=== PATIENT | female | born 1960 | race Two or more races ===

== ENCOUNTER 2023-08-19 08:42 | Outpatient (OUT) | payer OTHER, SELFPAY ==
--- NOTE | 2023-08-19 08:46 | MM_ITS ---
Patient: KRYSTAL SCHULTE Exam Date: 08/19/2023 : 1960 Gender:F Ordering : DR Efren Nix . Admission #: [id number] Family : Order #: [id number] CLICK HERE TO VIEW EXAM RADIOLOGY REPORT PROCEDURE: MM TOMOSYNTHESIS SCREENING BI COMPARISON: MG MAMM SCREEN 3D BREEZY CAD, 08/11/2022. MG MAMM SCREEN BREEZY W CAD, 12/10/2020. INDICATIONS: Screening Calculator Name NCI Breast Cancer Risk Assessment Tool 5 Year Breast Cancer Risk 1.20% Lifetime Breast Cancer Risk 5.60% Personal Breast Cancer No Personal Ovarian Cancer No Treatments None Family Cancers None LOCATION: [facility] BREAST COMPOSITION: Scattered areas fibroglandular density. FINDINGS: DIAGNOSTIC CATEGORY 2--BENIGN FINDING: Scattered benign-appearing calcifications are present. Scattered benign-appearing lymph nodes are present. RIGHT BREAST: No significant suspicious finding. LEFT BREAST: No significant suspicious finding. RECOMMENDATIONS: ROUTINE MAMMOGRAM AND CLINICAL EVALUATION IN 12 MONTHS. PLEASE NOTE: A NORMAL MAMMOGRAM DOES NOT EXCLUDE THE POSSIBILITY OF BREAST CANCER. A CLINICALLY SUSPICIOUS PALPABLE LUMP SHOULD BE BIOPSIED. Dictated by: Emile Gerardo MD on 08/20/2023 at 12:53 Approved by: Emile Gerardo MD on 08/20/2023 at 12:55
== END 2023-08-19 08:43 | disposition home or self-care (01) ==
LOC: MAMMO 08:43
PROVIDERS: PCP Family Medicine; Visit Provider Family Medicine
DX: Z12.31 Encounter for screening mammogram for malignant neoplasm of breast (principal)
CPT/HCPCS: 77063; 77067

== ENCOUNTER 2023-08-19 09:13 | Outpatient (OUT) | payer OTHER, SELFPAY ==
[2023-08-19 09:32] LABS: Basophils Percent Auto 0.5 % (0.2-2.0); Eosinophils Absolute Auto 0.1 10^3/uL (0.0-0.7); Eosinophils Percent Auto 1.6 % (0.9-7.0); Immature Granulocytes Abs Auto 0.02 10^3/uL (0.00-0.03); Immature Granulocytes Pct Auto 0.4 % (0.0-0.5); Lymphocytes Absolute Auto 1.9 10^3/uL (1.2-3.8); Lymphocytes Percent Auto 33.7 % (20.5-60.0); Mean Corpuscular HGB Conc 32.4 g/dL (29.9-35.2); Mean Corpuscular Volume 89.4 fL (81.0-99.0); Mean Platelet Volume 11.1 fL (9.5-13.5); Monocytes Absolute Auto 0.3 10^3/uL (0.3-0.8); Monocytes Percent Auto 5.2 % (1.7-12.0); Neutrophils Absolute Auto 3.3 10^3/uL (1.4-6.5); Neutrophils Percent Auto 58.6 % (43.0-75.0); Platelet Count 182 10^3/uL (150-450); Red Blood Count 4.14 10^6/uL (4.20-5.40); Red Cell Distribution Width 13.7 % (11.0-15.0); White Blood Count 5.6 10^3/uL (4.0-11.0)
[2023-08-19 10:40] LABS: Alanine Aminotransferase 32 U/L (14-59); Albumin Globulin Ratio 0.9; Albumin Level 3.6 g/dL (3.4-5.0); Alkaline Phosphatase 88 U/L (46-116); Anion Gap 11.6; Aspartate Amino Transferase 23 U/L (15-37); BUN Creatinine Ratio 22.4; Bilirubin Direct 0.1 mg/dL (0.0-0.2); Bilirubin Total 0.3 mg/dL (0.2-1.0); Calcium 9.3 mg/dL (8.5-10.1); Carbon Dioxide 28.8 mmol/L (21.0-32.0); Chloride 103 mmol/L (98-107); Chol HDL Ratio 4.4; Cholesterol 253 mg/dL (<=200); Estimated GFR (African America >60 (>=60); Estimated GFR (Non-African Ame >60 (>=60); Globulin 4.2 g/dL; Glucose 129 mg/dL (74-106); HDL Cholesterol 57 mg/dL (40-60); Potassium 4.4 mmol/L (3.5-5.1); Sodium 139 mmol/L (136-145); Thyroid Stimulating Hormone 2.151 uIU/mL (0.358-3.740); Total Protein 7.8 g/dL (6.4-8.2); Triglycerides 99 mg/dL (<=150); VLDL CHOLESTEROL 19.8 mg/dL
[2023-08-19 10:41] LABS: Estimated Average Glucose 157 mg/dL; Glycohemoglobin A1C 7.1 % (4.5-6.2)
== END 2023-08-19 09:14 | disposition home or self-care (01) ==
LOC: LAB 09:13
PROVIDERS: PCP Family Medicine; Visit Provider Family Medicine
DX: Z00.00 Encounter for general adult medical examination without abnormal findings (principal); Z12.31 Encounter for screening mammogram for malignant neoplasm of breast; E55.9 Vitamin D deficiency, unspecified
CPT/HCPCS: 36415; 77063; 77067; 80048; 80061; 80076; 82306; 83036; 84443; 85025

== ENCOUNTER 2023-11-24 09:02 | Outpatient (OUT) | payer OTHER, SELFPAY ==
[2023-11-24 09:25] LABS: Microalbumin Urine Random 1.5 mg/dL (<=30.0)
== END 2023-11-24 09:03 | disposition home or self-care (01) ==
LOC: LAB 09:03
PROVIDERS: PCP Family Medicine; Visit Provider Family Medicine
DX: E11.65 Type 2 diabetes mellitus with hyperglycemia (principal)
CPT/HCPCS: 82043

== ENCOUNTER 2024-07-19 08:37 | Outpatient (OUT) | payer OTHER, SELFPAY ==
[2024-07-19 08:57] LABS: Basophils Percent Auto 0.5 % (0.2-2.0); Eosinophils Absolute Auto 0.1 10^3/uL (0.0-0.7); Eosinophils Percent Auto 1.4 % (0.9-7.0); Hematocrit 38.4 % (36.0-48.0); Hemoglobin 12.2 g/dL (12.0-16.0); Immature Granulocytes Abs Auto 0.03 10^3/uL (0.00-0.03); Immature Granulocytes Pct Auto 0.5 % (0.0-0.5); Lymphocytes Absolute Auto 1.9 10^3/uL (1.2-3.8); Lymphocytes Percent Auto 29.8 % (20.5-60.0); Mean Corpuscular HGB Conc 31.8 g/dL (29.9-35.2); Mean Corpuscular Hemoglobin 28.4 pg (26.7-34.0); Mean Corpuscular Volume 89.3 fL (81.0-99.0); Mean Platelet Volume 11.4 fL (9.5-13.5); Monocytes Absolute Auto 0.3 10^3/uL (0.3-0.8); Monocytes Percent Auto 4.8 % (1.7-12.0); Neutrophils Absolute Auto 4.1 10^3/uL (1.4-6.5); Platelet Count 189 10^3/uL (150-450); Red Cell Distribution Width 13.8 % (11.0-15.0); White Blood Count 6.5 10^3/uL (4.0-11.0)
[2024-07-19 10:53] LABS: Alanine Aminotransferase 34 U/L (14-59); Albumin Globulin Ratio 0.9; Albumin Level 3.6 g/dL (3.4-5.0); Alkaline Phosphatase 94 U/L (46-116); Anion Gap 11.3; Aspartate Amino Transferase 19 U/L (15-37); BUN Creatinine Ratio 26.3; Bilirubin Direct 0.1 mg/dL (0.0-0.2); Bilirubin Total 0.3 mg/dL (0.2-1.0); Carbon Dioxide 27.8 mmol/L (21.0-32.0); Chloride 101 mmol/L (98-107); Chol HDL Ratio 4.6; Cholesterol 265 mg/dL (<=200); Estimated GFR (African America >60 (>=60); Estimated GFR (Non-African Ame >60 (>=60); Globulin 4.2 g/dL; Glucose 149 mg/dL (74-106); HDL Cholesterol 58 mg/dL (40-60); Potassium 4.1 mmol/L (3.5-5.1); Sodium 136 mmol/L (136-145); Thyroid Stimulating Hormone 2.794 uIU/mL (0.358-3.740); Total Protein 7.8 g/dL (6.4-8.2); Triglycerides 108 mg/dL (<=150); VLDL CHOLESTEROL 21.6 mg/dL
[2024-07-19 11:48] LABS: Estimated Average Glucose 163 mg/dL; Glycohemoglobin A1C 7.3 % (4.5-6.2)
== END 2024-07-19 08:38 | disposition home or self-care (01) ==
LOC: LAB 08:38
PROVIDERS: PCP Family Medicine; Visit Provider Family Medicine
DX: Z79.899 Other long term (current) drug therapy (principal); E11.65 Type 2 diabetes mellitus with hyperglycemia; E55.9 Vitamin D deficiency, unspecified; I10 Essential (primary) hypertension; E78.5 Hyperlipidemia, unspecified; E66.01 Morbid (severe) obesity due to excess calories
CPT/HCPCS: 36415; 80048; 80061; 80076; 82306; 83036; 84443; 85025

== ENCOUNTER 2024-10-27 08:50 | Outpatient (OUT) | payer OTHER, SELFPAY ==
--- NOTE | 2024-10-27 | MM_ITS ---
Patient Name: KRYSTAL SCHULTE MR#: [id number] : 1960 Exam Date: 10/27/2024 Ordering Doctor: DR Efren Nix . RADIOLOGY REPORT PROCEDURE: MM TOMOSYNTHESIS SCREENING BI COMPARISON: MM TOMOSYNTHESIS SCREENING BI, 08/19/2023. INDICATIONS: SCREENING Calculator Name NCI Breast Cancer Risk Assessment Tool 5 Year Breast Cancer Risk 1.30% Lifetime Breast Cancer Risk 5.50% Personal Breast Cancer No Personal Ovarian Cancer No Treatments None Family Cancers None LOCATION: [facility] BREAST COMPOSITION: There are scattered areas of fibroglandular density. FINDINGS: DIAGNOSTIC CATEGORY 2--BENIGN FINDING. NO CHANGE FROM COMPARISON. Scattered benign-appearing calcifications are present. Scattered benign-appearing lymph nodes are present. RIGHT BREAST: No significant suspicious finding. LEFT BREAST: No significant suspicious finding. RECOMMENDATIONS: ROUTINE MAMMOGRAM AND CLINICAL EVALUATION IN 12 MONTHS. PLEASE NOTE: A NORMAL MAMMOGRAM DOES NOT EXCLUDE THE POSSIBILITY OF BREAST CANCER. A CLINICALLY SUSPICIOUS PALPABLE LUMP SHOULD BE BIOPSIED. Dictated by: Emile Gerardo MD on 10/27/2024 at 10:09 Approved by: Emile Gerardo MD on 10/27/2024 at 10:15
--- OUTSIDE RECORDS SUMMARY | 2024-10-27 08:54 | XMS_ITS | CCD ---
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 Name Role Phone CHELSIE, DR EFREN Mccall Admitting Unavailable NADERER, DR EFREN Mccall Attending Unavailable NADERER, DR EFREN Mccall Primary Care Unavailable NADERER, DR EFREN Mccall Consulting Unavailable NADERER, DR EFREN Mccall Admitting Unavailable NADERER, DR EFREN Mccall Attending Unavailable NADERER, DR EFREN Mccall Primary Care Unavailable NUREMBERG, DR HARVEY Medrano Consulting Unavailable NADERER, DR EFREN Mccall Consulting Unavailable NADERER, DR EFREN Mccall Admitting Unavailable NADERER, DR EFREN Mccall Attending Unavailable NADERER, DR EFREN Mccall Primary Care Unavailable NADERER, DR EFREN Mccall Consulting Unavailable Efren Holguin MD Primary Care Provider CARL MURPHY Admitting Unavailable JEFFREYCARL DUNHAM Attending Unavailable NADERER, EFREN Primary Care Unavailable SHERI RIVERA Attending Unavailable NADERER, EFREN Primary Care Unavailable JEFFREYCARL DUNHAM Attending Unavailable NADEREREFREN Referring Unavailable NADERER, EFREN Primary Care Unavailable CARL MURPHY Attending Unavailable NADERER, EFREN Referring Unavailable NADERER, EFREN Primary Care Unavailable CARL MURPHY Attending Unavailable NADERER, EFREN Referring Unavailable NADERER, EFREN Primary Care Unavailable JEFFREYCARL DUNHAM Attending Unavailable NADERER, EFREN Referring Unavailable NADERER, EFREN Primary Care Unavailable JEFFREYCARL DUNHAM Attending Unavailable NADERER, EFREN Referring Unavailable NADERER, EFREN Primary Care Unavailable CARL MURPHY Attending Unavailable NADERER, EFREN Referring Unavailable NADERER, EFREN Primary Care Unavailable Efren Holguin MD Primary Care Provider EFREN HOLGUIN Attending Unavailable NADERER, EFREN Attending Unavailable NADERER, EFREN Attending Unavailable Medications Current Medications Medication Drug Class(es) Dates Sig (Normalized) Sig (Original) atorvastatin 40 mg oral tablet (3 sources) HMG-CoA Reductase Inhibitor Start: 07-19-2024 take 1 tablet by mouth once daily atorvastatin (Lipitor) 40 MG tablet Indications: Dyslipidemia (CMS/HCC) Take 1 tablet (40 mg) by mouth Daily 30 tablet 5 07/19/2024 Active bimatoprost 0.1 mg/ml ophthalmic solution (2 sources) Prostaglandin Analog Start: 07-02-2023 take 1 drop(s) into the eye(s) once daily LUMIGAN 0.01 % ophthalmic drops Administer 1 drop to both eyes nightly. 0 07/02/2023 Active brimonidine tartrate 2 mg/ml ophthalmic solution (5 sources) alpha-Adrenergic Agonist Start: 02-20-2024 End: 10-18-2024 take 1 drop(s) into the eye(s) every twelve hours brimonidine (AlphaGAN P) 0.2 % ophthalmic solution INSTILL 1 DROP INTO RIGHT EYE EVERY 12 HOURS 02/20/2024 10/18/2024 Discontinued Start: 11-18-2023 take 1 drop(s) into the eye(s) every twelve hours brimonidine (ALPHAGAN) 0.2 % ophthalmic solution Administer 1 drop to the right eye every 12 (twelve) hours. 5 mL 11 11/18/2023 Active cholecalciferol 0.025 mg oral capsule (2 sources) Vitamin D take 1 capsule by mouth once daily cholecalciferol (Vitamin D-3) 25 MCG (1000 UT) capsule Take 1,000 Units by mouth Daily Active difluprednate 0.5 mg/ml ophthalmic suspension (3 sources) Start: 03-02-20 End: 10-18-20 24 difluprednate (Durezol) 0.05 % ophthalmic solution Administer 1 drop into affected eye(s) in the morning and 1 drop at noon and 1 drop in the evening and 1 drop before bedtime. 03/02/2024 10/18/2024 Discontinued dorzolamide 20 mg/ml / timolol 5 mg/ml ophthalmic solution (2 sources) Carbonic Anhydrase Inhibitor, beta-Adrenergic Emanuel Start: 06-20-20 take 1 drop(s) into the eye(s) twice daily dorzolamide-timoloL (COSOPT) 22.3-6.8 mg/mL ophthalmic solution INSTILL 1 DROP INTO EACH EYE TWICE DAILY DIRECTED 0 06/20/2023 Active 24 hr metFORMIN hydrochloride 500 mg extended release oral tablet (5 sources) Biguanide Start: 05-09-20 End: 05-09-20 take 1 tablet by mouth once daily metFORMIN XR (Glucophage-XR) 500 MG 24 hr tablet Indications: Type 2 diabetes mellitus with hyperglycemia, without long-term current use of insulin (CMS/HCC) Take 1 tablet (500 mg) by mouth Daily 90 tablet 3 05/09/2024 05/09/2025 Active Start: 07-04-2023 metFORMIN XR ( GLUCOPHAGE XR) 500 mg 24 hr tablet olmesartan medoxomil 40 mg oral tablet (7 sources) Angiotensin 2 Receptor Emanuel Start: 08-28-2024 take 1 tablet by mouth once daily olmesartan (BENIcar) 40 MG tablet Indications: Essential hypertension, benign (CMS/HCC) Take 1 tablet by mouth once daily 90 tablet 08/28/2024 Active Start: 06-09-2023 olmesartan (BE NICAR) 40 mg tablet take 1 tablet by sherry th once daily olmesartan (BENICAR) 20 mg tablet Take 20 mg by mouth daily. 0 Active Problems Active Problems Problem Classification Problem Date Documented Da te Episodic/Chronic Cataract (2 sources) Bilateral senile combined form cataracts of eyes; Translations: [Combined forms of age-related cataract, bilateral] Onset: 02-16-2024 02-16-2024 Chronic Diabetes mellitus with complications (9 sources) Type 2 diabetes mellitus with hyperglycemia; Translations: [Hyperglycemia due to type 2 diabetes mellitus] Onset: 12-23-2022 Chronic Disorders of lipid metabolism (3 sources) Dyslipidemia; Translations: [Hyperlipidemia, unspecified] Onset: 10-27-2023 10-27-2023 Chronic Essential hypertension (5 sources) Benign essential hypertension; Translations: [Essential (primary) hypertension] Onset: 10-27-2023 10-27-2023 Chronic Glaucoma (6 sources) Primary open angle glaucoma; Translations: [Primary open-angle glaucoma, bilateral, moderate stage] Onset: 10-27-2023 02-16-2024 Chronic Nutritional deficiencies (4 sources) Vitamin D deficiency, unspecified; Translations: [Vitamin D deficiency] Onset: 04-22-2022 10-27-2023 Chronic Other nutritional; endocrine; and metabolic disorders (3 sources) Morbid obesity; Translations: [Morbid (severe) obesity due to excess calories] Onset: 10-27-2023 10-27-2023 Chronic Other screening for suspected conditions (not mental disorders or infectious disease) (6 sources) Encounter for screening mammogram for malignant neoplasm of breast; Translations: [Patient encounter status] Onset: 08-11-2022 Episodic Unclassified (1 source) Post-op Follow-up Onset: 04-13-2024 Past or Other Problems Problem Classification Problem Date Documented Da te Episodic/Chronic Other aftercare (3 sources) Long-term current use of drug therapy; Translations: [Other alf (current) drug therapy] Onset: 04-20-2024 04-20-2024 Episodic Other connective tissue disease (3 sources) Plantar fasciitis; Translations: [Plantar fascial fibromatosis] Onset: 10-27-2023 10-27-2023 Episodic Results Test Name Value Interpretation Reference Range Facility Glucose Glucometer (BldC) [M ass/Vol]on 04-12-2024 Glucose [Mass/Vol] 153 mg/dL High 65-99 [facility] GLYCOHEMOGLOBIN A1Con 2022 ADA RECOMMENDATION SEE BELOW Normal [facility] Comment on above: Result Comment: ADA RECOMMENDED LIMIT 4.0 - 6.0 ADA THERAPEUTIC TARGET < 7.0 ACTION SUGGESTED > 7.0 Performed By: #### A 1C #### [facility] [address] [address] [address] Millie Cai Glucose [Mass/Vol] 169 mg/dL Normal [facility] Comment on above: Performed By: #### A 1C #### [facility] [address] [address] [address] Millie Cai HbA1c (Bld) [Mass fraction] 7.5 % Critically high 4.5-6.2 [facility] Comment on above: Performed By: #### A 1C #### [facility] [address] [address] [address] Millie Cai MG MAMM SCREEN 3D BREEZY CADon 08-11-2022 MG MAMM SCREEN 3D BREEZY CAD Patient: GENI SCHULTE Exam Date: 08/11/2022 : 1960 Gender:F Ordering : DR EFREN HOLGUIN . Admission #: [id number] Family : Order #: [id number] CLICK HERE TO VIEW EXAM RADIOLOGY REPORT PROCEDURE: MAMMOGRAM SCREENING 3D BILATERAL CAD COMPARISON: MG MAMM SCREEN BREEZY W CAD, 12/10/2020. MG MAMM SCREEN BREEZY W CAD, 10/31/2019. INDICATIONS: Screening mammography Calculator Name NCI Breast Cancer Risk Assessment Tool 5 Year Breast Cancer Risk 1.20% Lifetime Breast Cancer Risk 6.00% Personal Breast Cancer No Personal Ovarian Cancer No Treatments None Family Cancers None LOCATION: [facility] BREAST COMPOSITION: Scattered areas fibroglandular density. FINDINGS: DIAGNOSTIC CATEGORY 2--BENIGN FINDING. NO CHANGE FROM COMPARISON. Scattered benign-appearing nodules are present. Scattered benign-appearing calcifications are present. Scattered benign-appearing lymph nodes are present. RIGHT BREAST: No significant suspicious finding. LEFT BREAST: No significant suspicious finding. RECOMMENDATIONS: ROUTINE MAMMOGRAM AND CLINICAL EVALUATION IN 12 MONTHS. PLEASE NOTE: A NORMAL MAMMOGRAM DOES NOT EXCLUDE THE POSSIBILITY OF BREAST CANCER. A CLINICALLY SUSPICIOUS PALPABLE LUMP SHOULD BE BIOPSIED. Dictated by: Harvey Gerardo MD on 08/11/2022 at 10:55 Approved by: Harvey Gerardo MD on 08/11/2022 at 10:58 Normal [facility] CBC AUTO DIFFon 04-15-2022 BASO # 0.0 103/ul Normal 0.0-0.1 [facility] Comment on above: Performed By: #### C BC #### [facility] [address] [place] [address] Dr. Millie Cai Basophils/100 WBC (Bld) 0.3 % Normal 0.2-2.0 [facility] Comment on above: Performed By: #### C BC #### [facility] [address] [address] [address] Millie Cai EO # 0.1 103/ul Normal 0.0-0.7 [facility] Comment on above: Performed By: #### C BC #### [facility] [address] [place] [address] Dr. Millie Cai Eosinophils/100 WBC (Bld) 1.4 % Normal 0.9-7.0 [facility] Comment on above: Performed By: #### C BC #### [facility] [address] [place] [address] Dr. Millie Cai Erythrocyte distribution width (RBC) [Ratio] 14.2 % Normal 11.0-15.0 [facility] Comment on above: Performed By: #### C BC #### [facility] [address] [place] [address] Dr. Millie Cai Hematocrit (Bld) [Volume fraction] 37.7 % Normal 36.0-48.0 [facility] Comment on above: Performed By: #### C BC #### [facility] [address] [place] [address] Dr. Millie Cai Hemoglobin (Bld) [Mass/Vol] 11.8 g/dL Critically low 12.0-16.0 [facility] Comment on above: Performed By: #### C BC #### [facility] [address] [place] [address] Dr. Millie Cai IG # 0.03 10e3/ul Normal 0.00-0.03 [facility] Comment on above: Performed By: #### C BC #### [facility] [address] [place] [address] Dr. Millie Cai IG % 0.5 % Normal 0.0-0.5 [facility] Comment on above: Performed By: #### C BC #### [facility] [address] [place] [address] Dr. Millie Cai LYMPH # 2.2 103/ul Normal 1.2-3.8 [facility] Comment on above: Performed By: #### C BC #### [facility] [address] [place] [address] Dr. Millie Cai Lymphocytes/100 WBC (Bld) 35.2 % Normal 20.5-60.0 [facility] Comment on above: Performed By: #### C BC #### [facility] [address] [place] [address] Dr. Millie Cai MANUAL DIFF REQ NO Normal [facility] Comment on above: Performed By: #### C BC #### [facility] [address] [address] [address] Millie Cai MCH (RBC) [Entitic mass] 28.2 pg Normal 26.7-34.0 [facility] Comment on above: Performed By: #### C BC #### [facility] [address] [place] [address] Dr. Millie Cai MCHC (RBC) [Mass/Vol] 31.3 g/dL Normal 29.9-35.2 [facility] Comment on above: Performed By: #### C BC #### [facility] [address] [place] [address] Dr. Millie Cai MCV (RBC) [Entitic vol] 90.2 fL Normal 81.0-99.0 [facility] Comment on above: Performed By: #### C BC #### [facility] [address] [place] [address] Dr. Millie Cai MONO # 0.3 103/ul Normal 0.3-0.8 [facility] Comment on above: Performed By: #### C BC #### [facility] [address] [place] [address] Dr. Millie Cai Monocytes/100 WBC (Bld) 5.5 % Normal 1.7-12.0 [facility] Comment on above: Performed By: #### C BC #### [facility] [address] [place] [address] Dr. Millie Cai NEUT # 3.6 103/ul Normal 1.4-6.5 [facility] Comment on above: Performed By: #### C BC #### [facility] [address] [place] [address] Dr. Millie Cai Neutrophils/100 WBC (Bld) 57.1 % Normal 43.0-75.0 [facility] Comment on above: Performed By: #### C BC #### [facility] [address] [place] [address] Dr. Millie Cai Platelet mean volume (Bld) [Entitic vol] 11.4 fL Normal 9.5-13.5 [facility] Comment on above: Performed By: #### C BC #### [facility] [address] [address] [address] Millie Cai PLT 194 103/ul Normal 150-450 [facility] Comment on above: Performed By: #### C BC #### [facility] [address] [address] [address] Millie Cai RBC 4.18 106/ul Critically low 4.20-5.40 [facility] Comment on above: Performed By: #### C BC #### [facility] [address] [address] [address] Millie Cai WBC 6.2 103/ul Normal 4.0-11.0 [facility] Comment on above: Performed By: #### C BC #### [facility] [address] [place] [address] Dr. Millie Cai GLYCOHEMOGLOBIN A1Con 2021 ADA RECOMMENDATION SEE BELOW Normal [facility] Comment on above: Result Comment: ADA RECOMMENDED LIMIT 4.0 - 6.0 ADA THERAPEUTIC TARGET < 7.0 ACTION SUGGESTED > 7.0 Performed By: #### A 1C #### [facility] [address] [place] [address] Dr. Millie Cai Glucose [Mass/Vol] 146 mg/dL Normal [facility] Comment on above: Performed By: #### A 1C #### [facility] [address] [place] [address] Dr. Millie Cai HbA1c (Bld) [Mass fraction] 6.7 % Critically high 4.5-6.2 [facility] Comment on above: Performed By: #### A 1C #### [facility] [address] [place] [address] Dr. Millie Cai LIPID PROFILEon 04-15-2022 CHOL-HDL RATIO NORM SEE BELOW Normal [facility] Comment on above: Result Comment: 3.3 - 4.4 LOW RISK 4.4 - 7.1 AVERAGE RISK 7.1 - 11.0 MODERATE RISK >11.0 HIGH RISK Performed By: #### B MP, LIVER, LIPID, TSH #### [facility] [address] [place] [address] Dr. Millie Cai Cholesterol [Mass/Vol] 235 mg/dL Critically high <=200 [facility] Comment on above: Performed By: #### B MP, LIVER, LIPID, TSH #### [facility] [address] [address] [address] Millie Cai Cholesterol in HDL [Mass/Vol] 50 mg/dL Normal 40-60 [facility] Comment on above: Performed By: #### B MP, LIVER, LIPID, TSH #### [facility] [address] [address] [address] Millie Cai Cholesterol in LDL [Mass/Vol] 161.2 mg/dL Normal [facility] Comment on above: Performed By: #### B MP, LIVER, LIPID, TSH #### [facility] [address] [address] [address] Millie Cai Cholesterol.total/Cho lesterol in HDL [Mass ratio] 4.7 {ratio} Normal [facility] Comment on above: Performed By: #### B MP, LIVER, LIPID, TSH #### [facility] [address] [address] [address] Millie Cai HDL NORMAL > or = 60 mg/dl - LOW CARDIOVASCULAR RISK <40 mg/dl - HIGH CARDIOVASCULAR RISK Normal [facility] Comment on above: Performed By: #### B MP, LIVER, LIPID, TSH #### [facility] [address] [address] [address] Millie Cai LDL CALC NORMAL SEE BELOW Normal [facility] Comment on above: Result Comment: <100 mg/dl OPTIMAL 100 - 129 mg/dl NEAR OR ABOVE OPTIMAL 130 - 159 mg/dl BORDERLINE HIGH 160 - 189 mg/dl HIGH >190 mg/dl VERY HIGH Performed By: #### B MP, LIVER, LIPID, TSH #### [facility] [address] [address] [address] Millie Cai Triglyceride [Mass/Vol] 119 mg/dL Normal <=150 [facility] Comment on above: Performed By: #### B MP, LIVER, LIPID, TSH #### [facility] [address] [address] [address] Millie Cai VLDL CALC 23.8 mg/dL Normal [facility] Comment on above: Performed By: #### B MP, LIVER, LIPID, TSH #### [facility] [address] [address] [address] Millie Cai LIVER PROFILEon 04-15-2022 Albumin [Mass/Vol] 3.6 g/dL Normal 3.4-5.0 [facility] Comment on above: Performed By: #### B MP, LIVER, LIPID, TSH #### [facility] [address] [address] [address] Millie Cai Albumin/Globulin [Mass ratio] 0.9 {ratio} Normal [facility] Comment on above: Performed By: #### B MP, LIVER, LIPID, TSH #### [facility] [address] [place] [address] Dr. Millie Cai ALP [Catalytic activity/Vol] 92 U/L Normal 46-116 [facility] Comment on above: Performed By: #### B MP, LIVER, LIPID, TSH #### [facility] [address] [place] [address] Dr. Millie Cai ALT [Catalytic activity/Vol] 20 U/L Normal 14-59 [facility] Comment on above: Performed By: #### B MP, LIVER, LIPID, TSH #### [facility] [address] [place] [address] Dr. Millie Cai AST [Catalytic activity/Vol] 16 U/L Normal 15-37 [facility] Comment on above: Performed By: #### B MP, LIVER, LIPID, TSH #### [facility] [address] [place] [address] Dr. Millie Cai BILI, CONJUGATED 0.1 mg/dL Normal 0.0-0.2 [facility] Comment on above: Performed By: #### B MP, LIVER, LIPID, TSH #### [facility] [address] [place] [address] Dr. Millie Cai Bilirubin [Mass/Vol] 0.4 mg/dL Normal 0.2-1.0 [facility] Comment on above: Performed By: #### B MP, LIVER, LIPID, TSH #### [facility] [address] [place] [address] Dr. Millie Cai Globulin (S) [Mass/Vol] 3.9 g/dL Normal [facility] Comment on above: Performed By: #### B MP, LIVER, LIPID, TSH #### [facility] [address] [place] [address] Dr. Millie Cai Protein [Mass/Vol] 7.5 g/dL Normal 6.4-8.2 [facility] Comment on above: Performed By: #### B MP, LIVER, LIPID, TSH #### [facility] [address] [place] [address] Dr. Millie Cai PROF CHEM 8 (BAS METB)on Anion gap [Moles/Vol] 11.6 mmol/L Normal [facility] Comment on above: Performed By: #### B MP, LIVER, LIPID, TSH #### [facility] [address] [place] [address] Dr. Millie Cai Calcium [Mass/Vol] 8.7 mg/dL Normal 8.5-10.1 [facility] Comment on above: Performed By: #### B MP, LIVER, LIPID, TSH #### [facility] [address] [place] [address] Dr. Millie Cai Chloride [Moles/Vol] 105 mmol/L Normal 98-107 [facility] Comment on above: Performed By: #### B MP, LIVER, LIPID, TSH #### [facility] [address] [place] [address] Dr. Millie Cai CO2 [Moles/Vol] 27.6 mmol/L Normal 21.0-32.0 [facility] Comment on above: Performed By: #### B MP, LIVER, LIPID, TSH #### [facility] [address] [place] [address] Dr. Millie Cai Creatinine [Mass/Vol] 0.62 mg/dL Normal 0.55-1.02 [facility] Comment on above: Performed By: #### B MP, LIVER, LIPID, TSH #### [facility] [address] [place] [address] Dr. Millie Cai EGFR-AF SURINAMESE >60 Normal >=60 [facility] Comment on above: Performed By: #### B MP, LIVER, LIPID, TSH #### [facility] [address] [address] [address] Millie Cai EGFR-NON AF SURINAMESE >60 Normal >=60 [facility] Comment on above: Performed By: #### B MP, LIVER, LIPID, TSH #### [facility] [address] [address] [address] Millie Cai Glucose [Mass/Vol] 122 mg/dL Critically high 74-106 T [facility] Comment on above: Performed By: #### B MP, LIVER, LIPID, TSH #### [facility] [address] [address] [address] Millie Cai Potassium [Moles/Vol] 4.2 mmol/L Normal 3.5-5.1 [facility] Comment on above: Performed By: #### B MP, LIVER, LIPID, TSH #### [facility] [address] [address] [address] Millie Cai Sodium [Moles/Vol] 140 mmol/L Normal 136-145 [facility] Comment on above: Performed By: #### B MP, LIVER, LIPID, TSH #### [facility] [address] [address] [address] Millie Cai Urea nitrogen [Mass/Vol] 17.0 mg/dL Normal 7.0-18.0 [facility] Comment on above: Performed By: #### B MP, LIVER, LIPID, TSH #### [facility] [address] [address] [address] Millie Cai Urea nitrogen/Creatinine [Mass ratio] 27.4 mg/mg Normal [facility] Comment on above: Performed By: #### B MP, LIVER, LIPID, TSH #### [facility] [address] [address] [address] Millie Cai TSHon 04-15-2022 TSH 1.589 uIU/mL Normal 0.358-3.740 [facility] Comment on above: Performed By: #### B MP, LIVER, LIPID, TSH #### [facility] [address] [place] [address] Dr. Millie Cai TSH RANGE SEE BELOW Normal [facility] Comment on above: Result Comment: <0.3 4 UIU/ml HYPERTHYROID 0.34-5.60 UIU/ml EUTHYROID >5.60 UIU/ml HYPOTHYROID Performed By: #### B MP, LIVER, LIPID, TSH #### [facility] [address] [address] [address] Millie Cai VITAMIN D 25 OHon 04-15-2022 VIT D 25-OH 27.2 ng/mL Normal [facility] Comment on above: Performed By: #### V ITAD #### [facility] [address] [place] [address] Dr. Millie Cai VIT D RANGES SEE BELOW Normal [facility] Comment on above: Result Comment: <20 ng/mL Vit D deficient 20 - <30 ng/mL Vit D insufficient 30 - 100 ng/mL Vit D sufficient >100 ng/mL Potential Toxicity Performed By: #### V ITAD #### [facility] [address] [place] [address] Dr. Millie Cai Vital Signs Date Time Vital Sign Value Performing Clinician Beata suarez 10-18-2024 09:31-0500 Body height 165.1 cm Efren Holguin MD Work Phone: [facility] 10-18-2024 09:31-0500 Body mass index (BMI) [Ratio] 39.11 kg/m2 Efren Holguin MD Work Phone: [facility] 10-18-2024 09:31-0500 Body temperature 97.11 [degF] Efren Holguin MD Work Phone: [facility] 10-18-2024 09:31-0500 Body weight 106.59 kg Efren Holguin MD Work Phone: [facility] 10-18-2024 09:31-0500 Diastolic blood pressure 74 mm[Hg] Efren Holguin MD Work Phone: [facility] 10-18-2024 09:31-0500 Heart rate 61 /min Efren Holguin MD Work Phone: [facility] 10-18-2024 09:31-0500 Respiratory rate 22 /min Efren Holguin MD Work Phone: [facility] 10-18-2024 09:31-0500 SaO2% (BldA) [Mass fraction] 98 % Efren Holguin MD Work Phone: [facility] 10-18-2024 09:31-0500 Systolic blood pressure 140 mm[Hg] Efren Holguin MD Work Phone: [facility] Healthcare Encounters Encounter Date Encounter Type Care Provider Facility Start: 10-18-2024 End: 10-18-2024 Bamboo flowsheet Efren Holguin MD Work Phone: [facility] Start: 10-18-2024 End: 10-18-2024 BamOpen-Plugo Aqua Skin Scienceheet Efren Holguin MD Work Phone: [facility] Start: 10-18-2024 End: 10-18-2024 Patient encounter procedure Efren Holguin MD Work Phone: [facility] Healthcare Work Phone: Start: 10-18-2024 End: 10-18-2024 Periodic preventive med est patient 40-64yrs Efren Holguin MD Work Phone: [facility] Comment on above: Annual physical exam (Primary Dx); Breast cancer screening by mammogram; Type 2 diabetes mellitus with hyperglycemia, without long-term current use of insulin ([facility]/HCC); Essential hypertension, benign ([facility]/HCC) Start: 10-18-2024 End: 10-18-2024 ambulatory EFREN HOLGUIN Not Available Start: 06-20-2024 End: 06-20-2024 ambulatory [facility] Start: 05-09-2024 End: 05-09-2024 ambulatory [facility] Start: 04-25-2024 End: 04-25-2024 ambulatory [facility] Start: 04-20-2024 End: 04-20-2024 ambulatory EFREN HOLGUIN Not Available Start: 04-19-2024 End: 04-19-2024 ambulatory [facility] Start: 04-13-2024 End: 04-13-2024 ambulatory [facility] Start: 04-12-2024 End: 04-12-2024 Evaluation and management of inpatient SHERI Mccall NICOLE [facility] Start: 04-12-2024 End: 04-12-2024 Evaluation and management of inpatient [facility] Start: 02-16-2024 End: 02-16-2024 ambulatory [facility] Start: 02-16-2024 End: 02-16-2024 Office outpatient visit 25 minutes Carl Murphy MD Work Phone: [facility] Comment on above: Primary open angle g laucoma (POAG) of both eyes, moderate stage (Primary Dx); Combined form of age-related cataract, both eyes Start: 12-27-2023 Documentation procedure Carl Murphy MD Work Phone: [facility] Start: 10-27-2023 End: 10-27-2023 ambulatory EFREN OHLGUIN Not Available Start: 12-23-2022 End: 12-24-[address] EFREN HOLGUIN Facility:[facility] Start: 08-11-2022 End: 08-12-[address] EFREN HOLGUIN Facility:[facility] Start: 04-22-2022 Encounter for genera l adult medical examination without abnormal findings DR EFREN HOLGUIN [facility] Start: 04-15-2022 End: 04-16-[address] EFREN HOLGUNI Facility:[facility] Start: 04-15-2022 End: 04-16-2022 Encounter for general adult medical examination without abnormal findings DR EFREN HOLGUIN Facility:[facility] Procedures Date Procedure Procedure Detail Performing Clinician Start: 08-19-2023 Mammography Efren apple MD Work Phone: Start: 10-01-2018 Colonoscopy Carl dunham MD Work Phone: Plan of Treatment Date Care Activity Detail Author Start: 08-15-2028 Screening for malign ant neoplasm of colon [facility] Start: 04-25-2025 End: 04-25-2025 Patient encounter procedure 04/25/2025 9:30 AM EDT Office Visit [facility] [address] [place] [address] Efren Holguin MD [address] [place] [id number] [facility] Start: 02-15-2025 Tobacco Screening Tobacco Screening [facility] Start: 01-16-2025 Hemoglobin A1c measurement Diabetes: Hemoglobin A1C [facility] Start: 01-13-2025 Glaucoma screening Diabetes: R etinopathy Screening [facility] Start: 11-24-2024 Urine screening for protein Diabetes: Urine Protein Screening [facility] Start: 10-18-2024 End: 12-19-2025 MG Breast - bilateral Screening Bilateral screening mammogram Imaging Routine Breast cancer screening by mammogram Expected: 10/18/2024, Expires: 12/19/2025 [facility] Work Phone: Comment on above: Expected: 10/18/2024 , Expires: 12/19/2025 Start: 10-18-2024 End: 10-18-2024 Patient encounter procedure 10/18/2024 9:15 AM EST Office Visit [facility] [address] [place] [phone] Efren Holguin MD [address] [place] [address] Arrived [facility] Comment on above: Arrived Start: 09-10-2024 Tobacco Screening Tobacco Screening [facility] Start: 08-19-2024 Screening for malign ant neoplasm of breast Mammogram [facility] Start: 07-16-2024 Influenza vaccination [facility] Start: 02-16-2024 End: 02-16-2024 Patient encounter procedure 02/16/2024 1:20 PM EDT Office Visit [facility] [address] [place] [address] Carl Murphy MD [address] [place] [address] [facility] Start: 11-19-2023 Hemoglobin A1c measurement Diabetes: Hemoglobin A1C [facility] Start: 07-16-2023 COVID-19 Vaccine ( season) COVID-19 Vaccine () [facility] Start: 08-15-2019 Screening for malign ant neoplasm of colon Colonoscopy [facility] Start: 2010 Administration of varicella zoster vaccine Zoster (Shingles) Vaccine (1 of 2) [facility] Start: 1990 Screening for malign ant neoplasm of cervix [facility] Start: 1981 Screening for malign ant neoplasm of cervix Pap Smear [facility] Start: 1979 DTaP,Tdap and Td Vac cines (1 - Tdap) DTaP,Tdap and Td Vaccines ( - Tdap) [facility] Start: 1978 Adult BMI Screening Adult BMI Screen ing [facility] Start: 1972 Depression Screening Depression Scre ening [facility] Start: 1960 Screening for malign ant neoplasm of colon [facility] Immunizations Immunization Date Immunization Notes Care Provider Fa cility 09-15-2024 influenza virus vaccine, unspecified formulation Efren Holguin MD Work Phone: [facility] 07-30-2023 influenza virus vaccine, unspecified formulation Carl Murphy MD Work Phone: [facility] Payers Date Payer Category Payer Private Health Insurance [employer]ET[employer] AETNA POS II [id number] 2018-Present [phone] [address] [place] [address] [id number] 2012 [facility] Care O (unspecified) [employer] [id number] 1960 Unknown [id number] 9.2.593 1960 Unknown [id number] [id number] 9.2.593 1960 Unknown [id number] [id number] 9.2.593 1960 Unknown [id number] [id number] 9.2.1286 1960 Unknown [id number] [id number] 9.2.1286 1960 Unknown [id number] [id number] 9.2.1286 1960 Unknown [id number] [id number] 9.2.1286 1960 Unknown [id number] [id number] 9.2.1286 1960 Unknown [id number] [id number] 9.2.1286 1960 Unknown [id number] [id number] 9.2.1286 1960 Unknown [id number] [id number] 9.2.1286 1960 Unknown [id number] [id number] 9.2.1286 1960 Unknown [id number] [id number] 9.2.1259 1960 Unknown [id number] [id number] 9.2.1259 1960 Unknown [id number] 9.2.1259 1959 Private Health Insurance [id number] Social History Date Type Detail Facility Start: 07-12-2023 End: 10-27-2023 Tobacco smoking status WIIS Never smoked tobacco [facility] Start: 07-12-2023 End: 10-27-2023 Tobacco use and exposure Smokeless tobacco non-user [facility] Start: 10-28-2023 End: 02-16-2024 Alcohol intake Current non-drinker of alcohol (finding) [facility] Start: 09-10-2023 End: 10-22-2023 History of Social function [facility] Start: 09-10-2023 End: 10-22-2023 Tobacco use panel [facility] Childcare Unknown [facility] Start: 1960 Sex Assigned At Female P [facility] Start: 08-15-2023 Gender identity Identifies as female gender (finding) [facility] Start: 04-20-2024 End: 10-18-2024 Alcoholic beverage intake Lifetime non-drinker (finding) [facility] Within the last year , have you been afraid of your partner or ex-partner? No [facility] Are you now , , , , never or living with a partner? [facility] How often to you hav e a drink containing alcohol? Never [facility] Do you feel stress - tense, restless, nervous, or anxious, or unable to sleep at night because your mind is troubled all the time - these days [OSQ] Not at all [facility] (I/We) worried wheth er (my/our) food would run out before (I/we) got money to buy more. Never true [facility] History of Present illness Narrative 10-18-2024 Efren Holguin MD - 10/18/2024 10:00 AM Shelton Holguin MD - 10/18/2024 10:00 AM Shelton Holguin MD - 10/18/2024 9:59 AM Shelton Holguin MD - 10/18/2024 9:15 AM EST Note Date & Type Note Facility 10-18-2024 History of Presen t illness Narrative Associated Problem(s): Type 2 diabetes mellitus with hyperglycemia, without long-term current use of insulin (CMS/HCC) Not checking BS and last A1C 7.3. Stick to ADA diet and limit carbs. Associated Problem(s): Essential hypertension, benign ([facility]) BP controlled and monitor PRN. Associated Problem(s): Annual physical exam Due for labs. Discussed proper diet and regular aerobic exercise. Need aerobic exercise 5-6 days a week for 30 minutes at a time. Smaller portions and limit total calories. Colonoscopy every 10 years. Tetanus every 10 years. Advised not to smoke. Images from the original note were not included. Subjective Patient ID: Geni Schulte is a 64 y.o. female who presents for Follow-up (6m). Presents for annual PE. Patient feels well today. Weight down 6 pounds over the past year. Active at work and walking more. No regular exercise at home. Tries to watch diet and eat healthy. Increased fruits and vegetables. Smaller portions and limits snacking. Tries to limit total daily calories. Reviewed labs from July. Not checking BS. Tries to eat well and stick to ADA diet but reports occasional splurges. Denies signs of elevated BS such as polyuria, polyphagia or polydipsia. Last A1C 7.3. Checking BP PRN and typically controlled. BP normal today. Taking medication daily and tolerating without side effects. Review of Systems Respiratory: Negative for cough, shortness of breath and wheezing. Cardiovascular: Negative for chest pain and palpitations. Gastrointestinal: Negative for abdominal pain, diarrhea, nausea and vomiting. Genitourinary: Negative for dysuria. Objective Physical Exam Constitutional: General: She is not in acute distress. Appearance: Normal appearance. HENT: Head: Normocephalic. Right Ear: Tympanic membrane normal. Left Ear: Tympanic membrane normal. Eyes: Extraocular Movements: Extraocular movements intact. Pupils: Pupils are equal, round, and reactive to light. Cardiovascular: Rate and Rhythm: Normal rate and regular rhythm. Heart sounds: No murmur heard. No friction rub. No gallop. Pulmonary: Effort: Pulmonary effort is normal. Breath sounds: Normal breath sounds. No wheezing, rhonchi or rales. Abdominal: General: Bowel sounds are normal. There is no distension. Palpations: Abdomen is soft. Tenderness: There is no abdominal tenderness. There is no guarding or rebound. Musculoskeletal: General: No swelling or tenderness. Cervical back: Neck supple. Right lower leg: No edema. Left lower leg: No edema. Skin: Findings: No erythema or rash. Neurological: General: No focal deficit present. Mental Status: She is alert and oriented to person, place, and time. Cranial Nerves: No cranial nerve deficit. Motor: No weakness. Gait: Gait normal. Assessment/Plan Problem List Items Addressed This Visit Essential hypertension, benign (CMS/HCC) BP controlled and monitor PRN. Type 2 diabetes mellitus with hyperglycemia, without long-term current use of insulin (CMS/HCC) Not checking BS and last A1C 7.3. Stick to ADA diet and limit carbs. Annual physical exam - Primary Due for labs. Discussed proper diet and regular aerobic exercise. Need aerobic exercise 5-6 days a week for 30 minutes at a time. Smaller portions and limit total calories. Colonoscopy every 10 years. Tetanus every 10 years. Advised not to smoke. Other Visit Diagnoses Breast cancer screening by mammogram Relevant Orders Bilateral screening mammogram documented in this encounter [facility] History of Present illness Narrative 02-16-2024 Carl Murphy MD - 02/16/2024 1:20 PM EDT Note Date & Type Note Facility 02-16-2024 History of Present illness Narrative Assessment/Plan: There has been progressive visual field loss in the right eye over the last 4 years with pressures largely in the low 20s. She has not responded meaningful lead to additional trials of other medications or multiple SLT is. Given her young age and the split fixation visual field loss, I would recommend trabeculectomy. We discussed the risks and benefits including bleeding, infection, progression of the cataract, hypotony with a 2% risk of need for revision. She was given printed brochure as well. The patient will give this some thought and we will call her later this week or next week about scheduling trabeculectomy in the right eye. ICD-10-CM 1. Primary open angle glaucoma (POAG) of both eyes, moderate stage H40.1132 2. Combined form of age-related cataract, both eyes H25.813 Geni Schulte had concerns including Glaucoma. HPI Glaucoma In both eyes. Side effects of treatment include none. Treatment compliance is always. Comments She was referred by Dr. Johnston regarding discussion for possible surgical options. She uses Dorz-timolol BID OU - last used ~7:30am today Brimonidine BID OD - last used ~8am today Lumigan (brand) qhs OU - last used ~8:30pm yesterday Blood sugar is stable. She does not check blood sugar regularly A1C was 7.0 a few months ago - monitored by her PCP Last edited by Sadaf Canada on 02/16/2024 2:24 PM. ROS Positive for: Eyes Negative for: Constitutional, Gastrointestinal, Neurological, Skin, Genitourinary, Musculoskeletal, HENT, Endocrine, Cardiovascular, Respiratory, Psychiatric, Allergic/Imm, Heme/Lymph Last edited by Anu Ac on 02/16/2024 1:41 PM. No current outpatient medications on file. (Ophthalmic Drugs) No current facility-administered medications for this visit. (Ophthalmic Drugs) Current Outpatient Medications (Other) Medication Sig brimonidine (ALPHAGAN) 0.2 % ophthalmic solution Administer 1 drop to the right eye every 12 (twelve) hours. dorzolamide-timoloL (COSOPT) 22.3-6.8 mg/mL ophthalmic solution INSTILL 1 DROP INTO EACH EYE TWICE DAILY DIRECTED BRYCEIGAN 0.01 % ophthalmic drops Administer 1 drop to both eyes nightly. metFORMIN XR (GLUCOPHAGE XR) 500 mg 24 hr tablet olmesartan (BENICAR) 40 mg tablet olmesartan (BENICAR) 20 mg tablet Take 20 mg by mouth daily. (Patient not taking: Reported on 07/12/2023) No current facility-administered medications for this visit. (Other) Ms. Schulte has a past medical history of DM (diabetes mellitus), type 2 ([facility]-H[facility]), Glaucoma, and Hypertension. She has a past surgical history that includes Dilation and curettage of uterus; Colonoscopy (N/A, 08/15/2018); Selective Laser Traveculoplasty (Right, 02/10/2023); and Selective Laser Traveculoplasty (Left, 02/23/2023). Base Eye Exam Visual Acuity (Snellen - Linear) Right Left Dist cc 20/25 +1 20/20 Correction: Glasses Tonometry (Applanation, 2:27 PM) Right Left Pressure 22 20 T1 by JCB Pachymetry (07/12/2023) Right Left Thickness 608 601 Gonioscopy (Boogie, four mirror) OD: 2+ light/moderate pigment OS: 2+ light/moderate pigment Neuro/Psych Oriented x3: Yes Mood/Affect: Normal Slit Lamp and Fundus Exam External Exam Right Left External Normal Normal Slit Lamp Exam Right Left Lids/Lashes Normal Normal Conjunctiva/Sclera 1+ Hyperemia 1+ Hyperemia Cornea Clear Clear Anterior Chamber Deep and quiet Deep and quiet Iris Round and reactive Round and reactive Lens 1+ Nuclear sclerosis, 1+ Cortical cataract 1+ Nuclear sclerosis, 1+ Cortical cataract Fundus Exam Right Left Vitreous Normal Normal Disc Inferior Notch, 2+ Inferior Pallor Inferior Notch C/D Ratio Vertical 0.9 0.8 C/D Ratio Horizontal 0.9 0.8 Macula Normal Normal Vessels Normal Normal Refraction Wearing Rx Sphere Cylinder [place] Add Right -4.00 +0.25 102 +2.75 Left -3.75 +0.50 005 +2.75 Age: 3yrs Type: PAL Scribe Statement: Scribed for and in the presence of Carl Murphy II, MD by ROBINSON Zaman. Provider Statement: ICarl II, MD personally performed the services described in the documentation, as scribed by ROBINSON Zaman in my presence, and it is both accurate and complete. documented in this encounter [facility] Instructions 02-16-2024 Patient Instructions Note Date & Type Note Facility 02-16-2024 Instructions Sadaf Canada - 02/16/2024 1:20 PM EDT Images from the original note were not included. Patient Education Patient Education How to Use Eye Drops Why is this procedure done? Your doctor has ordered a drug for your eyes to help with eye problems you are having. You may give these while you are sitting or standing. Some people are most comfortable doing eye drops when lying down. You can also have someone else help you with eye drops. What will the results be? The eye drop will get in your eye and the drug will be absorbed so your body can use it. What happens before the procedure? Make sure you have all of the items that you will need. Place them on a clean surface nearby. Eye drops A tissue or clean cloth Check to see if you have any drainage or crusting in your eyes. If you do, gently remove it with a clean cotton ball or clean warm wash cloth before placing the eye drugs in your eye. Check the drug. Read the label to make sure that you have the correct drug and that it is labeled ophthalmic, which means for eye use only. Make sure you have the right dose. Check the amount of drug against what the doctor ordered. Never use anyone else's eye drugs, even if it is the same drug. Know if you are supposed to give the eye drops in one eye or both. Check the expiration date. Do not use it if it is . Store your eye drugs away from the sunlight. Ask if they need to be kept in the refrigerator. Wash your hands with warm, soapy water before touching your eye. If you wear contact lenses, take them out before using eye drops. What happens during the procedure? Shake eye drops well before each use. Uncap the eye drop bottle and lay the cap on its side on a clean surface. Tilt your head back. Use one finger to gently pull the lower eyelid away from the eye to form a pouch. With the other hand, squeeze the eye drop into the pouch. Do not touch the tip of the bottle to your eye or anything else. Gently close your eyes. Do not blink. You may want to put one finger on the inside corner of your eye by your nose. This helps the drop to stay in your eye. After 1 to 2 minutes, open your eyes and move your finger. Some people squint and struggle to put eye drops in. Try closing your eyes. Place eye drop in the corner of your eye near your nose. Slowly open your eye 1 time and then close it. The eye drop will fall right into your eye. Finish by holding your finger at the inside corner of your eye and keeping your eyes closed for 1 to 2 more minutes. What happens after the procedure? Remove excess medicine around your eye with a clean tissue. Take care not to touch your eye. Recap the eye drop bottle and be careful not to touch the tip of the bottle. Wash your hands to remove any eye drops that may be on them. What follow-up care is needed? Your doctor may ask you to make visits to the office to check on your progress. Be sure to keep these visits. What problems could happen? Mild itching Burning Stinging Blurred vision Eye infection When do I need to call the doctor? You are not feeling better in 2 to 3 days or you are feeling worse If you have blurred vision for more than a few minutes after using your eye drops If you notice any redness or swelling Helpful tips If you are using more than 1 kind of eye drop, wait at least 5 minutes before using the other eye drop. If you are also using an eye ointment, use the eye drops first and wait at least 5 minutes before using the eye ointment. Where can I learn more? Gl[employer] Research Foundation http://www.glaucoma.org/treatment/eye drop-tips.php [employer] https://www.nei.nih.gov/qvjdb-jeehe-u ye-health/dao-fwlnujrobx-alc-diseases /glaucoma/glaucoma-medicines/how-put- eye-drops Last Reviewed Date 2020-10-16 Consumer Information Use and Disclaimer This generalized information is a limited summary of diagnosis, treatment, and/or medication information. It is not meant to be comprehensive and should be used as a tool to help the user understand and/or assess potential diagnostic and treatment options. It does NOT include all information about conditions, treatments, medications, side effects, or risks that may apply to a specific patient. It is not intended to be medical advice or a substitute for the medical advice, diagnosis, or treatment of a health care provider based on the health care provider's examination and assessment of a patient s specific and unique circumstances. Patients must speak with a health care provider for complete information about their health, medical questions, and treatment options, including any risks or benefits regarding use of medications. This information does not endorse any treatments or medications as safe, effective, or approved for treating a specific patient. [employer] and its affiliates disclaim any warranty or liability relating to this information or the use thereof. The use of this information is governed by the Terms of Use, available at https://www.[employer]en[employer].VBI Vaccines/en/know /iendhozu-lkagxrhhijknn-fypjy Copyright Copyright 2022 [employer] and its affiliates and/or licensors. All rights reserved. documented in this encounter [facility] History of Present illness Narrative 12-27-2023 Carl Murphy MD - 12/27/2023 9:27 AM Maryam Baptiste - 12/27/2023 9:27 AM Maryam Baptiste - 12/27/2023 9:27 AM EST Note Date & Type Note Facility 12-27-2023 History of Presen t illness Narrative Notes from Dr. Casillas: No response to monocular trial of Vyzulta in the right eye. IOP 22 and 18 at last visit using Lumigan only OS and brimonidine OD. Resume Lumigan OD as well. Schedule repeat HVF w/Dr. Casillas and schedule subsequent follow-up appointment with me for discussion about possible surgery in the right eye. I left message with the patient to please return my call so that I may review the message from Dr. Murphy. I also spoke with Marivel at Dr. Casillas's office and relayed the message. I faxed message to their office for their records in case patient should reach out to them. I spoke with the patient and she has an appointment for 02/02/[address] Casillas for Vf and OCT. Is this an okay time frame or would you like her to be seen sooner? documented in this encounter [facility] Evaluation note Note Date & Type Note Facility Evaluation note Diagnosis Primary open angle glaucoma (POAG) of both eyes, moderate stage- Primary Combined form of age-related cataract, both eyes documented in this encounter [facility] Evaluation note Note Date & Type Note Facility Evaluation note Diagnosis Type 2 diabetes mellitus with hyperglycemia, without long-term current use of insulin (CMS/HCC)- Primary Essential hypertension, benign (CMS/HCC) Essential hypertension, benign Type 2 diabetes mellitus with hyperglycemia, without long-term current use of insulin (CMS/HCC)- Primary Essential hypertension, benign (CMS/HCC) Essential hypertension, benign Morbidly obese (CMS/HCC) Morbid obesity Dyslipidemia (CMS/HCC) Other and unspecified hyperlipidemia Vitamin D deficiency Encounter for long-term (current) use of medications Encounter for long-term (current) use of other medications Body mass index [BMI] 40.0-44.9, adult (Z68.41) Annual physical exam- Primary Routine general medical examination at a health care facility Breast cancer screening by mammogram Type 2 diabetes mellitus with hyperglycemia, without long-term current use of insulin (CMS/HCC) Essential hypertension, benign (CMS/HCC) Essential hypertension, benign documented in this encounter [facility] Instructions Note Date & Type Note Facility Instructions Not on filedocumented in this en counter [facility] Summary Purpose Family History No Family History Records FoundNo Family History Records FoundNo Family History Records FoundNo Family History Records Found Advance Directives No Advanced Directives Records FoundNo Advanced Directives Records FoundNo Advanced Directives Records FoundNo Advanced Directives Records Found Additional Source Comments INFORMATION SOURCE (unrecogn ized section and content) DATE CREATED AUTHOR 12/25/2022 [facility] DATE CREATED AUTHOR AUTHOR'S ORGANIZ ATION 04/13/2024 [facility] DATE CREATED AUTHOR AUTHOR'S ORGANIZ ATION 06/22/2024 [facility] DATE CREATED AUTHOR AUTHOR'S ORGANIZ ATION 10/20/[address] 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 Relationship Specialty Start Date End Date Efren Holguin MD [address] [facility] [place] [address] PCP - General Family Medicine 07/20/18 Experimental Rocket Sled Mechanic Relationship Specialty Start Date End Date Efren Holguin MD [address] [facility] [place] [address] PCP - General Family Medicine 07/20/18 Experimental Rocket Sled Mechanic Relationship Specialty Start Date End Date Efren Holguin MD [address] [place] [phone] PCP - General Family Medicine 10/26/23 Experimental Rocket Sled Mechanic Relationship Specialty Start Date End Date Efren Holguin MD [address] [place] [phone] PCP - General Family Medicine 10/26/23 Reason for Visit (unrecogniz ed section and content) Reason Comments Glaucoma Reason Comments Follow-up 6m FOR RECORDS PERTAINING TO PATIENTS WHO ARE OR HAVE BEEN ENROLLED IN A CHEMICAL DEPENDENCY/SUBSTANCEABUSE PROGRAM, SOME INFORMATION MAY BE OMITTED. This clinical summary was aggregated from multiple sources. Caution should be exercised in using it in the provision of clinical care. This summary normalizes information from multiple sources, and as a consequence, information in this document may materially change the coding, format and clinical context of patient data. In addition, data may be omitted in some cases. CLINICAL DECISIONS SHOULD BE BASED ON THE PRIMARY CLINICAL RECORDS. [facility]. provides no warranty or guarantee of the accuracy or completeness of information in this document.
== END 2024-10-27 08:51 | disposition home or self-care (01) ==
LOC: MAMMO 08:50
PROVIDERS: PCP Family Medicine; Visit Provider Family Medicine
DX: Z12.31 Encounter for screening mammogram for malignant neoplasm of breast (principal)
CPT/HCPCS: 77063; 77067

== ENCOUNTER 2025-07-18 08:47 | Outpatient (OUT) | payer OTHER, SELFPAY ==
--- OUTSIDE RECORDS SUMMARY | 2025-07-18 08:50 | XMS_ITS | Encounter Summary ---
Author Organization [facility] Address [address] [place] [address] Care Team Providers Care Business Analytics Analyst Name Role Phone Efren Nix MD Primary Care Provider [phone] Encounter Details Date Type Department Care Team (Late st Contact Info) Description 07/19/2024 Orders Only [facility] [address] [place] [address] Efren Nix MD [address] [place] [address] Social History Tobacco Use Types Packs/Day Years Used Date Smoking Tobacco: Never Smokeless Tobacco: Never Alcohol Use Standard Drinks/Week Comments Never 0 (1 standard drink = 0.6 oz pur e alcohol) Humiliation, Afraid, Rape, and Kick questionnair e Answer Date Recorded Within the last year, have y ou been afraid of your partner or ex-partner? No 10/22/2023 Within the last year, have y ou been humiliated or emotionally abused in other ways by your partner or ex-partner? No Within the last year, have y ou been kicked, hit, slapped, or otherwise physically hurt by your partner or ex-partner? No 10/22/2023 Within the last year, have y ou been raped or forced to have any kind of sexual activity by your partner or ex-partner? No 10/22/2023 Social Connection and Isolat ion Panel [NHANES] Answer Date Recorded In a typical week, how many times do you talk on the phone with family, friends, or neighbors? More than three times a week 10/22/2023 How often do you get togethe r with friends or relatives? More than three times a week 10/22/2023 How often do you attend chur ch or confucianism services? Patient declined 10/22/2023 Do you belong to any clubs o r organizations such as gnosticist groups, unions, fraternal or athletic groups, or school groups? No 10/22/2023 How often do you attend meet ings of the clubs or organizations you belong to? Patient declined 10/22/2023 Are you , , di vorced, , never , or living with a partner? 10/22/2023 AUDIT-C Answer Date Recorded Q1: How often do you have a drink containing alcohol? Never 10/22/2023 Q2: How many drinks containi ng alcohol do you have on a typical day when you are drinking? Patient does not drink Q3: How often do you have si x or more drinks on one occasion? Never 10/22/2023 Overall Financial Resource Strain (CARDIA) Answe r Date Recorded How hard is it for you to pa y for the very basics like food, housing, medical care, and heating? Not hard at all 10/22/2023 [facility] [place] of Occupat ional Health - Occupational Stress Questionnaire Answer Date Recorded Do you feel stress - tense, restless, nervous, or anxious, or unable to sleep at night because your mind is troubled all the time - these days? Not at all 10/22/2023 Exercise Vital Sign Answer Date Recorde d On average, how many days pe r week do you engage in moderate to strenuous exercise (like a brisk walk)? 0 days 10/22/2023 On average, how many minutes do you engage in exercise at this level? 0 min 10/22/2023 Hunger Vital Sign Answer Date Recorded Within the past 12 months, y ou worried that your food would run out before you got the money to buy more. Never true 10/22/20 23 Within the past 12 months, t he food you bought just didn't last and you didn't have money to get more. Never true 10/22/2023 PRAPARE - Transportation Answer Date Re corded In the past 12 months, has l ack of transportation kept you from medical appointments or from getting medications? No 06/2023 In the past 12 months, has l ack of transportation kept you from meetings, work, or from getting things needed for daily living? No 10/22/2023 Housing Stability Vital Sign Answer George e Recorded In the last 12 months, was t here a time when you were not able to pay the mortgage or rent on time? No 10/22/2023 In the last 12 months, how many places have you lived? 1 10/22/2023 In the last 12 months, was t here a time when you did not have a steady place to sleep or slept in a jail (including now)? No 10/22/2023 Comments Unknown Sex and Gender Information Value Date Recorded Sex Assigned at Female 10/22/2023 5:06 AM EST Legal Sex Female 9:52 AM EST Gender Identity Female 10/22/2023 5:06 AM EST Sexual Orientation Not on file documented as of this encounter Plan of Treatment Not on file documented as of this encounter Visit Diagnoses Not on filedocumented in this encounter Care Teams Business Analytics Analyst Relationship Specialty Start Date End Date Efren Nix MD PCP - General Family Medicine 10/26/23 documented as of this encounter
--- OUTSIDE RECORDS SUMMARY | 2025-07-18 08:50 | XMS_ITS | Clinical Summary ---
Author Organization [facility] Healthcare Address [address] [place] [address] Care Team Providers Care Weather Strip Mechanic Name Role Phone Efren Nix MD Primary Care Provider [phone] Allergies No known active allergies Medications cholecalciferol (Vitamin D-3) 25 MCG (1000 UT) capsule Take 1,000 Units by mouth Daily Active atorvastatin (Lipitor) 40 MG tabletIndication s:Dyslipidemia Take 1 tablet (40 mg) by mouth Daily 90 tablet 3 04/25/2025 Active metFORMIN XR (Glucophage-XR) 500 MG 24 hr tabletIndication s:Type 2 diabetes mellitus with hyperglycemia, without long-term current use of insulin (HCC) Take 1 tablet by mouth once daily 90 tablet 04/30/2025 Active olmesartan (BENIcar) 40 MG tabletIndication s:Essential hypertension, benign Take 1 tablet by mouth once daily 90 tablet 05/30/2025 Active Active Problems Problem Noted Date Diagnosed Date Annual physical exam 10/18/2024 Assessment & Plan (10/18/2024 9:59 AM EST): Due for labs. Discussed proper diet and regular aerobic exercise. Need aerobic exercise 5-6 days a week for 30 minutes at a time. Smaller portions and limit total calories. Colonoscopy every 10 years. Tetanus every 10 years. Advised not to smoke. Encounter for long-term (current) use of medicat ions 04/20/2024 Essential hypertension, benign 10/27/2023 Assessment & Plan (04/25/2025 10:03 AM EDT): BP controlled and monitor PRN. Assessment & Plan (10/18/2024 10:00 AM EST): BP controlled and monitor PRN. Assessment & Plan (04/20/2024 12:11 PM EDT): BP controlled and monitor PRN. Assessment & Plan (10/27/2023 9:43 AM EST): BP controlled and monitor PRN. Dyslipidemia 10/27/2023 Class 2 severe obesity due t o excess calories with serious comorbidity and body mass index (BMI) of 38.0 to 38.9 in adult 10/27/2023 Assessment & Plan (04/25/2025 10:03 AM EDT): Weight loss indicated. Plantar fasciitis 10/27/2023 Type 2 diabetes mellitus wit h hyperglycemia, without long-term current use of insulin 10/27/2023 Assessment & Plan (04/25/2025 10:03 AM EDT): Reports BS stable and due for A1C. Stick to ADA diet and limit carbs. Assessment & Plan (10/18/2024 10:00 AM EST): Not checking BS and last A1C 7.3. Stick to ADA diet and limit carbs. Assessment & Plan (04/20/2024 12:11 PM EDT): Not checking BS and due for A1C. Stick to ADA diet and limit carbs. Assessment & Plan (10/27/2023 9:43 AM EST): Reports BS slightly elevated but A1C 7.1. Stick to ADA diet and limit carbs. Vitamin D deficiency 10/27/2023 Other specified glaucoma 10/27/2023 Encounters Date Type Department Care Team Description 05/30/2025 Refill [facility] [address] [facility] [facility] [place] [place] [phone] Efren Nix MD Essential hypertension, benign 04/27/2025 Refill [facility] [address] [place] [phone] Efren Nix MD Type 2 diabetes mellitus with hyperglycemia, without long-term current use of insulin (HCC) 04/25/2025 9:30 AM EDT Office Visit [facility] [address] [place] [phone] Efren Nix MD Type 2 diabetes mellitus with hyperglycemia, without long-term current use of insulin (HCC) (Primary Dx); Essential hypertension, benign ; Class 2 severe obesity due to excess calories with serious comorbidity and body mass index (BMI) of 38.0 to 38.9 in adult ([facility]-HCC); Dyslipidemia ; Type 2 diabetes mellitus with other specified complication (HCC) 04/25/2025 Bamboo flowsheet [facility] [address] [place] [address] Efren Nix MD 04/22/2025 Travel from Last 3 Months Social History Tobacco Use Types Packs/Day Years Used Date Smoking Tobacco: Never Smokeless Tobacco: Never Tobacco Cessation:Counseling Given: Not Answered Alcohol Use Standard Drinks/Week Comments Never 0 [...] often do you attend chur ch or mormonism services? Patient declined 10/22/2023 Do you belong to any clubs o r organizations such as nondenominational groups, unions, fraternal or athletic groups, or [...] and heating? Not hard at all 10/22/2023 [facility] of Occupat ional Health - Occupational Stress [...] place to sleep or slept in a long term (including now)? No 10/22/2023 Comments Unknown Sex and Gender Information Value Date Recorded Sex Assigned at Female 10/22/2023 5:06 AM EST Legal Sex Female 9:52 AM EST Gender Identity Female 10/22/2023 5:06 AM EST Sexual Orientation Not on file Last Filed Vital Signs Vital Sign Reading Time Taken Comments Blood Pressure 136/74 04/25/2025 9:35 AM EDT Pulse 65 04/25/2025 9:35 AM EDT Temperature 36.2 C (97.1 F) 04/25/2025 9:35 AM EDT Respiratory Rate 22 04/25/2025 9:35 AM EDT Oxygen Saturation 99% 04/25/2025 9:35 AM EDT Inhaled Oxygen Concentration - - Weight 105 kg (232 lb) 04/25/2025 9:35 AM EDT Height 165.1 cm (5' 5 ) 04/25/2025 9:35 AM EDT Body Mass Index 38.61 04/25/2025 9:35 AM EDT Plan of Treatment Health Maintenance Due Date Last Done Comments CT Colonography 1960 FIT-DNA 1960 FIT 1960 FOBT 1960 Sigmoidoscopy 1960 Pap Smear 1981 Cervical Cancer Screening 1990 HPV/Cotest 1990 Diabetes: Urine Protein Screening 11/24/2024 024 Diabetes: Hemoglobin A1C 01/16/2025 07/19/2024, 03/2023 Influenza Vaccine (#1) 2025 , 07/30/2023, 09/10/2022, Additional history exists Mammogram 10/27/2025 10/27/2024, 08/19/2023 Diabetes: Retinopathy Screening 01/15/2027 , 01/13/2023 Colonoscopy 08/15/2028 08/15/2018, 08/15/2018 Colorectal Cancer Screening 08/15/2028 Procedures Procedure Name Priority Date/Time Associated Diagnosis Comments MM TOMOSYNTHESIS SCREENING BI 10/27/2024 10:15 AM EST from Last 3 Months or Most Recently Relevant to Health Maintenance Results * MM TOMOSYNTHESIS SCREENING BI (10/27/2024 10:15 AM EST) Anatomical Region Laterality Modality Other 10/27/2024 10:1 5 AM EST Narrative 10/27/2024 10:16 [place] [address] Mammography Report Signed Patient: GENI SCHULTE MR#: [id number] : 1960 Acct:[id number] Age/Sex: 64 / F ADM Date: 10/27/24 Loc: MAMMO Attending Dr: Efren Nix M.D. Ordering Physician: Efren Nix M.D. Results: Date of Service: 10/27/24 Follow Up: Procedure(s): MM tomosynthesis screening BI Accession Number(s): [id number] cc: Efren Nix M.D. Patient Name: GENI SCHULTE MR#: [id number] : 1960 Exam Date: 10/27/2024 Ordering Doctor: DR Efren Nix . RADIOLOGY REPORT PROCEDURE: MM TOMOSYNTHESIS SCREENING BI COMPARISON: MM TOMOSYNTHESIS SCREENING BI, 08/19/2023. INDICATIONS: SCREENING Calculator Name NCI Breast Cancer Risk Assessment Tool 5 Year Breast Cancer Risk 1.30% Lifetime Breast Cancer Risk 5.50% Personal Breast Cancer No Personal Ovarian Cancer No Treatments None Family Cancers None LOCATION: [facility] BREAST COMPOSITION: There are scattered areas of fibroglandular density. FINDINGS: DIAGNOSTIC CATEGORY 2--BENIGN FINDING. NO CHANGE FROM COMPARISON. Scattered benign-appearing calcifications are present. Scattered benign-appearing lymph nodes are present. RIGHT BREAST: No significant suspicious finding. LEFT BREAST: No significant suspicious finding. RECOMMENDATIONS: ROUTINE MAMMOGRAM AND CLINICAL EVALUATION IN 12 MONTHS. PLEASE NOTE: A NORMAL MAMMOGRAM DOES NOT EXCLUDE THE POSSIBILITY OF BREAST CANCER. A CLINICALLY SUSPICIOUS PALPABLE LUMP SHOULD BE BIOPSIED. Dictated by: Emile Bergeron MD on 10/27/2024 at 10:09 Approved by: Emile Bergeron MD on 10/27/2024 at 10:15 Dictated By: Emile Bergeron M.D. Signed By: 10/27/24 1016 DD/ 1015 TD/TT: Wilton Weaver: Procedure Note Radiology, Radiologist, MD - 10/27/2024 [place] [address] Mammography Report Signed Patient: GENI SCHULTE EMR#: [id number] : 1960Acct:[id number] Age/Sex: 64 / FADM Date: 10/27/24 Loc: MAMMO Attending Dr: Efren Nix M.D. Ordering Physician: Efren Nix M.D.Results: Date of Service: 10/27/24Follow Up: Procedure(s): MM tomosynthesis screening BI Accession Number(s): [id number] cc: Efren Nix M.D. Patient Name: GENI SCHULTE MR#: [id number] : 1960 Exam Date: 10/27/2024 Ordering Doctor: DR Efren Haq RADIOLOGY REPORT PROCEDURE: MM TOMOSYNTHESIS SCREENING BI COMPARISON: MM TOMOSYNTHESIS SCREENING BI, 08/19/2023. INDICATIONS: SCREENING Calculator Name NCI Breast Cancer Risk Assessment Tool 5 Year Breast Cancer Risk 1.30% Lifetime Breast Cancer Risk 5.50% Personal Breast Cancer No Personal Ovarian Cancer No Treatments None Family Cancers None LOCATION: [facility] BREAST COMPOSITION: There are scattered areas of fibroglandulardensity. FINDINGS: DIAGNOSTIC CATEGORY 2--BENIGN FINDING. NO CHANGE FROM COMPARISON. Scattered benign-appearing calcifications are present. Scattered benign-appearing lymph nodes are present. RIGHT BREAST: No significant suspicious finding. LEFT BREAST: No significant suspicious finding. RECOMMENDATIONS: ROUTINE MAMMOGRAM AND CLINICAL EVALUATION IN 12 MONTHS. PLEASE NOTE: A NORMAL MAMMOGRAM DOES NOT EXCLUDE THE POSSIBILITY OFBREAST CANCER. A CLINICALLY SUSPICIOUS PALPABLE LUMP SHOULD BE BIOPSIED. Dictated by: Emile Bergeron MD on 10/27/2024 at 10:09 Approved by: Emile Bergeron MD on 10/27/2024 at 10:15 Dictated By: Emile Bergeron M.D. Signed By:10/27/24 1016 DD/ 1015 TD/TT: Wilton Weaver: Efren Nix MD [facility] Final Result from Last 3 Months or Most Recently Relevant to Health Maintenance Insurance [employer] Care Teams Weather Strip Mechanic Relationship Specialty Start Date End Date Efren Nix MD PCP - General Family Medicine 10/26/23
--- OUTSIDE RECORDS SUMMARY | 2025-07-18 08:50 | XMS_ITS | Encounter Summary ---
Author Organization [facility] Address [address] [place] [address] Care Team Providers Care Piano Mechanic Apprentice Name Role Phone Efren Nix MD Primary Care Provider [phone] Encounter Details Date Type Department Care Team (Late st Contact Info) Description 10/27/2023 Abstract [facility] [address] [place] [address] Efren Nix MD [address] [place] [address] Social History Tobacco Use Types Packs/Day Years [...] often do you attend chur ch or rastafarian services? Patient declined 10/22/2023 Do you belong to any clubs o r organizations such as sikh groups, unions, fraternal or athletic groups, or [...] and heating? Not hard at all 10/22/2023 [facility] [place] of Occupat ional Health - Occupational Stress [...] place to sleep or slept in a [place] (including now)? No 10/22/2023 Comments Unknown Sex and Gender Information Value Date Recorded Sex Assigned at Female 10/22/2023 5:06 AM EST Legal Sex Female 9:52 AM EST Gender Identity Female 10/22/2023 5:06 AM EST Sexual Orientation Not on file COVID-19 Exposure Response Date Recorded In the last 10 days, have yo u been in contact with someone who was confirmed or suspected to have Coronavirus/COVID-19? No / Unsure 10/22/2023 5:21 AM EST documented as of this encounter Plan of Treatment Not on file documented as of this encounter Visit Diagnoses Not on filedocumented in this encounter Care Teams Piano Mechanic Apprentice Relationship Specialty Start Date End Date Efren Nix MD PCP - General Family Medicine 10/26/23 documented as of this encounter
--- OUTSIDE RECORDS SUMMARY | 2025-07-18 08:50 | XMS_ITS | Encounter Summary ---
Author Organization [facility] Address [address] [place] [address] Care Team Providers Care Tunnel Form Placing Supervisor Name Role Phone Efren Nix MD Primary Care Provider [phone] Encounter Details Date Type Department Care Team (Late st Contact Info) Description 10/27/2024 Clinisync Result Encounter [facility] External Department Unsolicited Efren Nix MD [address] [place] [phone] Social History Tobacco Use Types Packs/Day Years [...] 10/22/2023 How often do you attend chur or anabaptism services? Patient declined 10/22/2023 Do you belong to any clubs o r organizations such as synagogue groups, unions, fraternal or athletic groups, or [...] and heating? Not hard at all 10/22/2023 [facility] [place] of Occupat ional Health - Occupational Stress [...] place to sleep or slept in a skilled nursing (including now)? No 10/22/2023 Comments Unknown Sex and Gender Information Value Date Recorded Sex Assigned at Female 10/22/2023 5:06 AM EST Legal Sex Female 9:52 AM EST Gender Identity Female 10/22/2023 5:06 AM EST Sexual Orientation Not on file documented as of this encounter Plan of Treatment Not on file documented as of this encounter Procedures Procedure Name Priority Date/Time Associated Diagnosis Comments MM TOMOSYNTHESIS SCREENING BI 10/27/2024 10:15 AM EST documented in this encounter Results * MM TOMOSYNTHESIS SCREENING BI (10/27/2024 10:15 AM EST) Anatomical Region Laterality Modality Other 10/27/2024 10:1 5 AM EST Narrative 10/27/2024 10:16 [place] [address] Mammography Report Signed Patient: GENI TENORIO MR#: [id number] : 1960 Acct:[id number] Age/Sex: 64 / F ADM Date: 10/27/24 Loc: MAMMO Attending Dr: Efren Nix M.D. Ordering Physician: Efren Nix M.D. Results: Date of Service: 10/27/24 Follow Up: Procedure(s): MM tomosynthesis screening BI Accession Number(s): [id number] cc: Efren Nix M.D. Patient Name: GENI TENORIO MR#: [id number] : 1960 Exam Date: 10/27/2024 Ordering Doctor: DR Efren Nix . RADIOLOGY REPORT PROCEDURE: MM TOMOSYNTHESIS SCREENING BI COMPARISON: MM TOMOSYNTHESIS SCREENING BI, 08/19/2023. INDICATIONS: SCREENING Calculator Name NCI Breast Cancer Risk Assessment Tool 5 Year Breast Cancer Risk 1.30% Lifetime Breast Cancer Risk 5.50% Personal Breast Cancer No Personal Ovarian Cancer No Treatments None Family Cancers None LOCATION: [facility] BREAST COMPOSITION: There are scattered areas of [...] LUMP SHOULD BE BIOPSIED. Dictated by: Emile Gerardo MD on 10/27/2024 at 10:09 Approved by: Emile Gerardo MD on 10/27/2024 at 10:15 Dictated By: Emile Gerardo M.D. Signed By: 10/27/24 1016 DD/ 1015 TD/TT: Wireless Network Engineer: Procedure Note Radiology, RadiologistMD - 10/27/[address] [place] [address] Mammography Report Signed Patient: GENI TENORIO EMR#: [id number] : 1960Acct:[id number] Age/Sex: 64 / FADM Date: 10/27/24 Loc: MAMMO Attending Dr: Efren Nix M.D. Ordering Physician: Efren Nix M.D.Results: Date of Service: 10/27/24Follow Up: Procedure(s): MM tomosynthesis screening BI Accession Number(s): [id number] cc: Efren Nix M.D. Patient Name: GENI TENORIO MR#: [id number] : 1960 Exam Date: 10/27/2024 Ordering Doctor: DR Efren Nix . RADIOLOGY REPORT PROCEDURE: MM TOMOSYNTHESIS SCREENING BI COMPARISON: MM TOMOSYNTHESIS SCREENING BI, 08/19/2023. INDICATIONS: SCREENING Calculator Name NCI Breast Cancer Risk Assessment Tool 5 Year Breast Cancer Risk 1.30% Lifetime Breast Cancer Risk 5.50% Personal Breast Cancer No Personal Ovarian Cancer No Treatments None Family Cancers None LOCATION: [facility] BREAST COMPOSITION: There are scattered areas of [...] LUMP SHOULD BE BIOPSIED. Dictated by: Emile Gerardo MD on 10/27/2024 at 10:09 Approved by: Emile Gerardo MD on 10/27/2024 at 10:15 Dictated By: Emile Gerardo M.D. Signed By:10/27/24 1016 DD/ 1015 TD/TT: Wireless Network Engineer: Efren Nix MD [facility] Final Result documented in this encounter Visit Diagnoses Not on filedocumented in this encounter Care Teams Tunnel Form Placing Supervisor Relationship Specialty Start Date End Date Efren Nix MD PCP - General Family Medicine 10/26/23 documented as of this encounter
--- OUTSIDE RECORDS SUMMARY | 2025-07-18 08:51 | XMS_ITS | Clinical Summary ---
Author Organization BuildingOps tem Address [id number] [address] [place] [address] Care Team Providers Care Cage Loader Name Role Phone Efren Nix MD Primary Care Provider [phone] Allergies No known active allergies Medications metFORMIN XR (GLUCOPHAGE XR) 500 mg 24 hr tablet 3 Active olmesartan (BENICAR) 40 mg tablet 3 Active difluprednate (DUREZOL) 0.05 % drops Administer 1 drop to the right eye in the morning and 1 drop at noon and 1 drop in the evening and 1 drop before bedtime. Start five days BEFORE (04/07) your surgery scheduled for 04/12/2024. 5 mL 2 4 Active dorzolamide-domingo oloL (COSOPT) 22.3-6.8 mg/mL ophthalmic solution Administer 1 drop into the left eye every 12 (twelve) hours. 4 Active LUMIGAN 0.01 % ophthalmic drops Administer 1 drop into the left eye nightly. 4 Active ofloxacin (OCUFLOX) 0.3 % ophthalmic solution Administer 1 drop to the right eye in the morning and 1 drop at noon and 1 drop in the evening and 1 drop before bedtime. Active Active Problems No known active problems Family History Medical History Relation Name Comments Heart disease Father Glaucoma Mother glaucoma lost sight in o ne eye Hypertension Mother glaucoma Thyroid disease Mother glaucoma Relation Name Status Comments Father Mother glaucoma Social History Tobacco Use Types Packs/Day Years Used Date Smoking Tobacco: Never Smokeless Tobacco: Never Tobacco Cessation:Counseling Given: Not Answered Alcohol Use Standard Drinks/Week Comments No 0 (1 standard drink = 0.6 oz pur e alcohol) Childcare Answer Date Recorded Childcare Unknown 04/26/2019 Employment Answer Date Recorded Employment Unknown 04/26/2019 Hunger Screening Answer Date Recorded Within the past 12 months we worried whether our food would run out before we got money to buy more. Never True 07/12/2023 Within the past 12 months th e food we bought just didn't last and we didn't have money to get more. Never True 07/12/2023 Purpose - Life Answer Date Recorded Purpose and direction in life Unknown Comments No Sex and Gender Information Value Date Recorded Sex Assigned at Female 08/15/2023 5:09 PM EDT Legal Sex Female 11:43 AM EDT Gender Identity Female 08/15/2023 5:09 PM EDT Sexual Orientation Not on file Last Filed Vital Signs Vital Sign Reading Time Taken Comments Blood Pressure 130/56 04/12/2024 8:30 AM EDT Pulse 49 04/12/2024 8:30 AM EDT Temperature 36.6 C (97.9 F) 04/12/2024 8:15 AM EDT Respiratory Rate 16 04/12/2024 8:30 AM EDT Oxygen Saturation 97% 04/12/2024 8:30 AM EDT Inhaled Oxygen Concentration - - Weight 108.9 kg (240 lb) 04/12/2024 6:29 AM EDT Height 166.4 cm (5' 5.5 ) 04/12/2024 6:29 AM EDT Body Mass Index 39.33 04/12/2024 6:29 AM EDT Plan of Treatment Health Maintenance Due Date Last Done Comments Depression Screening 1972 DTaP,Tdap and Td Vaccines (1 - Tdap) 1979 Pap Smear 1981 Zoster (Shingles) Vaccine (1 of 2) 2010 Colonoscopy 08/15/2019 08/15/2018, 08/15/2018 COVID-19 Vaccine (2023-2 5 season) 2024 11/12/2023, 06/09/2022, 09/15/2021, Additional history exists Adult BMI Screening 04/12/2025 04/12/2024 Tobacco Screening 04/19/2025 04/19/2024 Influenza Vaccine 07/16/2025 07/30/2023, , 11/10/2021, Additional history exists Medical Devices Not on file Procedures Procedure Name Priority Date/Time Associated Diagnosis Comments PROVATION COLONOSCOPY Routine 08/15/2018 9:29 AM EDT from Last 3 Months or Most Recently Relevant to Health Maintenance Results * ES colonoscopy imaging (08/15/2018 9:29 AM EDT) Narrative SYSTEMGENERATED, DOCUMENTATION - 08/15/2018 9:29 AM EDT This order has been auto-finalized for image and report archival. *See procedures tab in Epic or report included with PACS images for full interpretation.* us Hunter Corado DO IMG OR IMG ORDERABLES Final Result from Last 3 Months or Most Recently Relevant to Health Maintenance Insurance [address] [place] [address] [employer] Care Teams Cage Loader Relationship Specialty Start Date End Date Efren Nix MD PCP - General Family Medicine 07/20/18
--- OUTSIDE RECORDS SUMMARY | 2025-07-18 08:59 | XMS_ITS | CCD ---
Author Organization [facility] Care Team Providers Care Psychometric Examiner Name Role Phone CHELSIE, DR EFREN Mccall Admitting Unavailable NADERER, DR EFREN Mccall Attending Unavailable NADERER, DR EFREN Mccall Primary Care Unavailable NADERER, DR EFREN Mccall Consulting Unavailable NADERER, DR EFREN Mccall Admitting Unavailable NADERER, DR EFREN Mccall Attending Unavailable NADERER, DR EFREN Mccall Primary Care Unavailable TODD, DR HARVEY Medrano Consulting Unavailable NADERER, DR EFREN Mccall Consulting Unavailable NADERER, DR EFREN Mccall Admitting Unavailable NADERER, DR EFREN Mccall Attending Unavailable NADERER, DR EFREN Mccall Primary Care Unavailable NADERER, DR EFREN Mccall Consulting Unavailable JEFFREY, CARL Montez Admitting Unavailable JEFFREY, CARL Montez Attending Unavailable NADERER, EFREN Primary Care Unavailable SHERI RIVERA Attending Unavailable NADERER, EFREN Primary Care Unavailable JEFFREY, CARL Montez Attending Unavailable NADERER, EFREN Referring Unavailable NADERER, EFREN Primary Care Unavailable JEFFREY, CARL Montez Attending Unavailable NADERER, EFREN Referring Unavailable NADERER, EFREN Primary Care Unavailable JEFFREY, CARL Montez Attending Unavailable NADERER, EFREN Referring Unavailable NADERER, EFREN Primary Care Unavailable JEFFREY, CARL Montez Attending Unavailable NADERER, EFREN Referring Unavailable NADERER, EFREN Primary Care Unavailable JEFFREY, CARL Montez Attending Unavailable NADERER, EFREN Referring Unavailable NADERER, EFREN Primary Care Unavailable JEFFREY, CARL Montez Attending Unavailable NADERER, EFREN Referring Unavailable NADERER, EFREN Primary Care Unavailable Naderer Efren IGLESIAS Primary Care Provider Efren Holguin MD Primary Care Provider [phone] EFREN HOLGUIN Attending Unavailable NADERER, EFREN Attending Unavailable Medications Current Medications Medication Drug Class(es) Dates Sig (Normalized) Sig (Original) atorvastatin 40 mg oral tablet (9 sources) HMG-CoA Reductase Inhibitor Start: 04-25-2025 take 1 tablet by mouth once daily atorvastatin (Lipitor) 40 MG tablet Indications: Dyslipidemia (CMS/HCC) Take 1 tablet (40 mg) by mouth Daily 90 tablet 3 04/25/2025 Active Start: 04-25-2025 take 1 tablet by sherry th once daily atorvastatin (Lipitor) 40 MG tablet Indications: Dyslipidemia (CMS/HCC) Take 1 tablet (40 mg) by mouth Daily 90 tablet 3 04/25/2025 Active Start: 01-15-2025 End: 04-25-2025 take 1 tablet by mouth once daily atorvastatin (Lipitor) 40 MG tablet Indications: Dyslipidemia (CMS/HCC) Take 1 tablet by mouth once daily 30 tablet 01/15/2025 04/25/2025 Discontinued (Reorder) Start: 07-19-2024 take 1 tablet by sherry th once daily atorvastatin (Lipitor) 40 MG tablet Indications: Dyslipidemia (CMS/HCC) Take 1 tablet (40 mg) by mouth Daily 30 tablet 5 07/19/2024 Active bimatoprost 0.1 mg/ml ophthalmic solution (9 sources) Prostaglandin Analog Start: 04-12-2024 take 1 drop(s) into the eye(s) once daily LUMIGAN 0.01 % ophthalmic drops Administer 1 drop into the left eye nightly. 04/12/2024 Active Start: 07-02-2023 take 1 drop(s) into the eye(s) once daily LUMIGAN 0.01 % ophthalmic drops Administer 1 drop to both eyes nightly. 07/02/2023 Active brimonidine tartrate 2 mg/ml ophthalmic solution (9 sources) alpha-Adrenergic Agonist Start: 02-20-2024 End: 10-18-2024 [...] 11/18/2023 Active cholecalciferol 0.025 mg oral capsule (5 sources) Vitamin D take 1 capsule by mouth once daily cholecalciferol (Vitamin D-3) 25 MCG (1000 UT) capsule Take 1,000 Units by mouth Daily Active difluprednate 0.5 mg/ml ophthalmic suspension (10 sources) Start: 03-02-20 End: 10-18-20 difluprednate (Durezol) 0.05 % ophthalmic solution Administer 1 drop into affected eye(s) in the morning and 1 drop at noon and 1 drop in the evening and 1 drop before bedtime. 03/02/2024 10/18/2024 Discontinued dorzolamide 20 mg/ml / timolol 5 mg/ml ophthalmic solution (9 sources) Carbonic Anhydrase Inhibitor, beta-Adrenergic Emanuel Start: 04-12-20 take 1 drop(s) into the eye(s) every twelve hours dorzolamide-timoloL (COSOPT) 22.3-6.8 mg/mL ophthalmic solution Administer 1 drop into the left eye every 12 (twelve) hours. 04/12/2024 Active Start: 06-20-2023 take 1 drop(s) into the eye(s) twice daily dorzolamide-timoloL (COSOPT) 22.3-6.8 mg/mL ophthalmic solution INSTILL 1 DROP INTO EACH EYE TWICE DAILY DIRECTED 06/20/2023 Active erythromycin 0.005 mg/mg ophthalmic ointment (2 sources) Macrolide, Macrolide Antimicrobial Start: 04-19-2024 End: 04-29-2024 erythromycin (ILOTYCIN) ophthalmic ointment Administer 1.25 cm (0.5 inches total) to the right eye nightly for 10 days. 3.5 g 04/19/2024 04/29/2024 Active 24 hr metFORMIN hydrochloride 500 mg extended release oral tablet (17 sources) Biguanide Start: 05-09-2024 End: 05-09-2025 take 1 tablet by mouth once daily metFORMIN XR (Glucophage-XR) 500 MG 24 hr tablet Indications: Type 2 diabetes mellitus with hyperglycemia, without long-term current use of insulin (CMS/HCC) Take 1 tablet (500 mg) by mouth Daily 90 tablet 3 05/09/2024 05/09/2025 Active Start: 07-04-2023 metFORMIN XR ( GLUCOPHAGE XR) 500 mg 24 hr tablet 07/04/2023 Active ofloxacin 3 mg/ml ophthalmic solution (5 sources) Quinolone Antimicrobial ofloxacin (OCUFLOX) 0.3 % ophthalmic solution Administer 1 drop to the right eye in the morning and 1 drop at noon and 1 drop in the evening and 1 drop before bedtime. Active olmesartan medoxomil 40 mg oral tablet (20 sources) Angiotensin 2 Receptor Emanuel Start: take 1 tablet by mouth once daily olmesartan (BENIcar) 40 MG tablet Indications: Essential hypertension, benign (CMS/HCC) Take 1 tablet by mouth once daily 90 tablet 02/28/2025 Active Start: 08-28-2024 take 1 tablet by sherry th once daily olmesartan (BENIcar) 40 MG tablet Indications: Essential hypertension, benign (CMS/HCC) Take 1 tablet by mouth once daily 90 tablet 08/28/2024 Active Start: 06-09-2023 olmesartan (BE NICAR) 40 mg tablet take 1 tablet by sherry th once daily olmesartan (BENICAR) 20 mg tablet Take 20 mg by mouth daily. Active Problems Active Problems Problem Classification Problem Date Documented Da te Episodic/Chronic Cataract (2 sources) Combined forms of age-related cataract, bilateral; Translations: [Bilateral senile combined form cataracts of eyes] Onset: 02-16-2024 02-16-2024 Chronic Diabetes mellitus with complications (18 sources) Type 2 diabetes mellitus with hyperglycemia; Translations: [Hyperglycemia due to type 2 diabetes mellitus] Onset: 12-23-2022 Chronic Disorders of lipid metabolism (11 sources) Dyslipidemia; Translations: [Hyperlipidemia, unspecified] Onset: 10-27-2023 10-27-2023 Chronic Essential hypertension (12 sources) Benign essential hypertension; Translations: [Essential (primary) hypertension] Onset: 10-27-2023 10-27-2023 Chronic Glaucoma (16 sources) Primary open-angle glaucoma, bilateral, moderate stage; Translations: [Glaucoma] Onset: 10-27-2023 10-27-2023 Chronic Nutritional deficiencies (9 sources) Vitamin D deficiency, unspecified; Translations: [Vitamin D deficiency] Onset: 04-22-2022 10-27-2023 Chronic Other nutritional; endocrine; and metabolic disorders (6 sources) Morbid obesity; Translations: [Morbid (severe) obesity due to excess calories] Onset: 10-27-2023 10-27-2023 Chronic Other nutritional; endocrine; and metabolic disorders (4 sources) Severe obesity; Translations: [Class 2 severe obesity due to excess calories with serious comorbidity and body mass index (BMI) of 38.0 to 38.9 in adult ([facility]/HCC)] Onset: 10-27-2023 04-25-2025 Chronic Other screening for suspected conditions (not mental disorders or infectious disease) (6 sources) Encounter for screening mammogram for malignant neoplasm of breast; Translations: [Patient encounter status] Onset: 08-11-2022 Episodic Unclassified (1 source) Post-op Follow-up Onset: 04-13-2024 Past or Other Problems Problem Classification Problem Date Documented Da te Episodic/Chronic Other aftercare (6 sources) Long-term current use of drug therapy; Translations: [Other terminal supervisor (current) drug therapy] Onset: 04-20-2024 04-20-2024 Episodic Other aftercare (2 sources) Patient encounter status; Translations: [Other skilled nursing (current) drug therapy] Onset: 04-20-2024 04-20-2024 Episodic Other connective tissue disease (8 sources) Plantar fasciitis; Translations: [Plantar fascial fibromatosis] Onset: 10-27-2023 10-27-2023 Episodic Results Test Name Value Interpretation Reference Range Facility ALL CBC WITH AUTO DIFFon BASOPHILS ABSOLUTE AUTO 0.0 [facility] Basophils/100 WBC (Bld) 0.5 % 0.2 - 2.0 % [facility] Eosinophils/100 WBC (Bld) 1.4 % 0.9 - 7.0 % [facility] Erythrocyte distribution width (RBC) [Ratio] 13.8 % 11.0 - 15.0 % [facility] Hematocrit (Bld) [Volume fraction] 38.4 % 36.0 - 48.0 % [facility] Hemoglobin (Bld) [Mass/Vol] 12.2 g/dL 12.0 - 16.0 g/dL [facility] IMMATURE GRANULOCYTES ABS AUTO 0.03 [facility] Immature granulocytes/100 WBC (Bld) 0.5 % 0.0 - 0.5 % [facility] LYMPHOCYTES ABSOLUTE AUTO 1.9 [facility] Lymphocytes/100 WBC (Bld) 29.8 % 20.5 - 60.0 % [facility] MCH (RBC) [Entitic mass] 28.4 pg 26.7 - 34.0 pg [facility] MCHC (RBC) [Mass/Vol] 31.8 g/dL 29.9 - 35.2 g/dL [facility] MCV (RBC) [Entitic vol] 89.3 fL 81.0 - 99.0 fL [facility] MONOCYTES ABSOLUTE AUTO 0.3 [facility] Monocytes/100 WBC (Bld) 4.8 % 1.7 - 12.0 % [facility] NEUTROPHILS ABSOLUTE AUTO 4.1 [facility] Neutrophils/100 WBC (Bld) 63.0 % 43.0 - 75.0 % [facility] Platelet mean volume (Bld) [Entitic vol] 11.4 fL 9.5 - 13.5 fL [facility] EO # 0.1 [facility] PLT 189 [facility] RBC 4.30 [facility] WBC 6.5 [facility] Glucose Glucometer (BldC) [M ass/Vol]on 04-12-2024 Glucose [Mass/Vol] 153 mg/dL High 65-99 [facility] GLYCOHEMOGLOBIN A1Con 2022 ADA RECOMMENDATION SEE BELOW Normal [facility] Comment on above: Result Comment: ADA RECOMMENDED LIMIT 4.0 - 6.0 ADA THERAPEUTIC TARGET < 7.0 ACTION SUGGESTED > 7.0 Performed By: #### A 1C #### [facility] [address] [address] [address] Millie Cai Glucose [Mass/Vol] 169 mg/dL Normal [facility] Comment on above: Performed By: #### A 1C #### [facility] [address] [place], [place] [address] Dr. Millie Cai HbA1c (Bld) [Mass fraction] 7.5 % Critically high 4.5-6.2 [facility] Comment on above: Performed By: #### A 1C #### [facility] [address] [place], [place] [address] Dr. Millie Cai MG MAMM SCREEN 3D BREEZY CADon 08-11-2022 MG MAMM SCREEN 3D BREEZY CAD Patient: GENI SCHULTEEun Exam Date: 08/11/2022 : 1960 Gender:F Ordering : DR EFREN HOLGUIN . Admission #: [id number] Family : Order #: [id number] CLICK HERE TO VIEW EXAM RADIOLOGY REPORT [...] Treatments None Family Cancers None LOCATION: [facility] BREAST COMPOSITION: Scattered areas fibroglandular density. FINDINGS: [...] MD on 08/11/2022 at 10:58 Normal [facility] CBC AUTO DIFFon 04-15-2022 BASO # 0.0 103/ul Normal 0.0-0.1 [facility] Comment on above: Performed By: #### C BC #### [facility] [address] [address] [address] Millie Cai Basophils/100 WBC (Bld) 0.3 % Normal 0.2-2.0 [facility] Comment on above: Performed By: #### C BC #### [facility] [address] [address] [address] Millie Cai EO # 0.1 103/ul Normal 0.0-0.7 [facility] Comment on above: Performed By: #### C BC #### [facility] [address] [address] [address] Millie Cai Eosinophils/100 WBC (Bld) 1.4 % Normal 0.9-7.0 [facility] Comment on above: Performed By: #### C BC #### [facility] [address] [place] [address] Dr. Millie Cai Erythrocyte distribution width (RBC) [Ratio] 14.2 % Normal 11.0-15.0 [facility] Comment on above: Performed By: #### C BC #### [facility] [address] [place] [address] Dr. Millie Cai Hematocrit (Bld) [Volume fraction] 37.7 % Normal 36.0-48.0 [facility] Comment on above: Performed By: #### C BC #### [facility] [address] [place] [address] Dr. Millie Cai Hemoglobin (Bld) [Mass/Vol] 11.8 g/dL Critically low 12.0-16.0 [facility] Comment on above: Performed By: #### C BC #### [facility] [address] [place] [address] Dr. Millie Cai IG # 0.03 10e3/ul Normal 0.00-0.03 [facility] Comment on above: Performed By: #### C BC #### [facility] [address] [place] [address] Dr. Millie Cai IG % 0.5 % Normal 0.0-0.5 [facility] Comment on above: Performed By: #### C BC #### [facility] [address] [place] [address] Dr. Millie Cai LYMPH # 2.2 103/ul Normal 1.2-3.8 [facility] Comment on above: Performed By: #### C BC #### [facility] [address] [place] [address] Dr. Milile Cai Lymphocytes/100 WBC (Bld) 35.2 % Normal 20.5-60.0 [facility] Comment on above: Performed By: #### C BC #### [facility] [address] [place] [address] Dr. Millie Cai MANUAL DIFF REQ NO Normal [facility] Comment on above: Performed By: #### C BC #### [facility] [address] [address] [address] Millie Cai MCH (RBC) [Entitic mass] 28.2 pg Normal 26.7-34.0 [facility] Comment on above: Performed By: #### C BC #### [facility] [address] [place] [address] Dr. Millie Cai MCHC (RBC) [Mass/Vol] 31.3 g/dL Normal 29.9-35.2 [facility] Comment on above: Performed By: #### C BC #### [facility] [address] [place] [address] Dr. Millie Cai MCV (RBC) [Entitic vol] 90.2 fL Normal 81.0-99.0 [facility] Comment on above: Performed By: #### C BC #### [facility] [address] [place] [address] Dr. Millie Cai MONO # 0.3 103/ul Normal 0.3-0.8 [facility] Comment on above: Performed By: #### C BC #### [facility] [address] [place] [address] Dr. Millie Cai Monocytes/100 WBC (Bld) 5.5 % Normal 1.7-12.0 [facility] Comment on above: Performed By: #### C BC #### [facility] [address] [place] [address] Dr. Millie Cai NEUT # 3.6 103/ul Normal 1.4-6.5 [facility] Comment on above: Performed By: #### C BC #### [facility] [address] [place] [address] Dr. Millie Cai Neutrophils/100 WBC (Bld) 57.1 % Normal 43.0-75.0 [facility] Comment on above: Performed By: #### C BC #### [facility] [address] [place] [address] Dr. Millie Cai Platelet mean volume (Bld) [Entitic vol] 11.4 fL Normal 9.5-13.5 [facility] Comment on above: Performed By: #### C BC #### [facility] [address] [address] [address] Millie Cai PLT 194 103/ul Normal 150-450 [facility] Comment on above: Performed By: #### C BC #### [facility] [address] [address] [address] Millie Cai RBC 4.18 106/ul Critically low 4.20-5.40 [facility] Comment on above: Performed By: #### C BC #### [facility] [address] [address] [address] Millie Cai WBC 6.2 103/ul Normal 4.0-11.0 [facility] Comment on above: Performed By: #### C BC #### [facility] [address] [address] [address] Millie Cai GLYCOHEMOGLOBIN A1Con 2021 ADA RECOMMENDATION SEE BELOW Normal [facility] Comment on above: Result Comment: ADA RECOMMENDED LIMIT 4.0 - 6.0 ADA THERAPEUTIC TARGET < 7.0 ACTION SUGGESTED > 7.0 Performed By: #### A 1C #### [facility] [address] [place] [address] Dr. Millie Cai Glucose [Mass/Vol] 146 mg/dL Normal [facility] Comment on above: Performed By: #### A 1C #### [facility] [address] [address] [address] Millie Cai HbA1c (Bld) [Mass fraction] 6.7 % Critically high 4.5-6.2 [facility] Comment on above: Performed By: #### A 1C #### [facility] [address] [address] [address] Millie Cai LIPID PROFILEon 04-15-2022 CHOL-HDL RATIO NORM SEE BELOW Normal [facility] Comment on above: Result Comment: 3.3 - 4.4 LOW RISK 4.4 - 7.1 AVERAGE RISK 7.1 - 11.0 MODERATE RISK >11.0 HIGH RISK Performed By: #### B MP, LIVER, LIPID, TSH #### [facility] [address] [address] [address] Millie Cai Cholesterol [Mass/Vol] 235 mg/dL Critically high <=200 [facility] Comment on above: Performed By: #### B MP, LIVER, LIPID, TSH #### [facility] [address] [address] [address] Millie Cai Cholesterol in HDL [Mass/Vol] 50 mg/dL Normal 40-60 [facility] Comment on above: Performed By: #### B MP, LIVER, LIPID, TSH #### [facility] [address] [address] [address] Millie Cai Cholesterol in LDL [Mass/Vol] 161.2 mg/dL Normal [facility] Comment on above: Performed By: #### B MP, LIVER, LIPID, TSH #### [facility] [address] [address] [address] Millie Cai Cholesterol.total/Cho lesterol in HDL [Mass ratio] 4.7 {ratio} Normal [facility] Comment on above: Performed By: #### B MP, LIVER, LIPID, TSH #### [facility] [address] [address] [address] Millie Cai HDL NORMAL > or = 60 mg/dl - LOW CARDIOVASCULAR RISK <40 mg/dl - HIGH CARDIOVASCULAR RISK Normal [facility] Comment on above: Performed By: #### B MP, LIVER, LIPID, TSH #### [facility] [address] [address] [address] Millie Cai LDL CALC NORMAL SEE BELOW Normal [facility] Comment on above: Result Comment: <100 mg/dl OPTIMAL 100 - 129 mg/dl NEAR OR ABOVE OPTIMAL 130 - 159 mg/dl BORDERLINE HIGH 160 - 189 mg/dl HIGH >190 mg/dl VERY HIGH Performed By: #### B MP, LIVER, LIPID, TSH #### [facility] [address] [address] [address] Millie Cai Triglyceride [Mass/Vol] 119 mg/dL Normal <=150 [facility] Comment on above: Performed By: #### B MP, LIVER, LIPID, TSH #### [facility] [address] [address] [address] Millie Cai VLDL CALC 23.8 mg/dL Normal [facility] Comment on above: Performed By: #### B MP, LIVER, LIPID, TSH #### [facility] [address] [address] [address] Millie Cai LIVER PROFILEon 04-15-2022 Albumin [Mass/Vol] 3.6 g/dL Normal 3.4-5.0 [facility] Comment on above: Performed By: #### B MP, LIVER, LIPID, TSH #### [facility] [address] [address] [address] Millie Cai Albumin/Globulin [Mass ratio] 0.9 {ratio} Normal [facility] Comment on above: Performed By: #### B MP, LIVER, LIPID, TSH #### [facility] [address] [place] [address] Dr. Millie Cai ALP [Catalytic activity/Vol] 92 U/L Normal 46-116 [facility] Comment on above: Performed By: #### B MP, LIVER, LIPID, TSH #### [facility] [address] [place] [address] Dr. Millie Cai ALT [Catalytic activity/Vol] 20 U/L Normal 14-59 [facility] Comment on above: Performed By: #### B MP, LIVER, LIPID, TSH #### [facility] [address] [place] [address] Dr. Millie Cai AST [Catalytic activity/Vol] 16 U/L Normal 15-37 [facility] Comment on above: Performed By: #### B MP, LIVER, LIPID, TSH #### [facility] [address] [place] [address] Dr. Millie Cai BILI, CONJUGATED 0.1 mg/dL Normal 0.0-0.2 [facility] Comment on above: Performed By: #### B MP, LIVER, LIPID, TSH #### [facility] [address] [address] [address] Millie Cai Bilirubin [Mass/Vol] 0.4 mg/dL Normal 0.2-1.0 [facility] Comment on above: Performed By: #### B MP, LIVER, LIPID, TSH #### [facility] [address] [address] [address] Millie Cai Globulin (S) [Mass/Vol] 3.9 g/dL Normal [facility] Comment on above: Performed By: #### B MP, LIVER, LIPID, TSH #### [facility] [address] [address] [address] Millie Cai Protein [Mass/Vol] 7.5 g/dL Normal 6.4-8.2 [facility] Comment on above: Performed By: #### B MP, LIVER, LIPID, TSH #### [facility] [address] [address] [address] Millie Cai PROF CHEM 8 (BAS METB)on Anion gap [Moles/Vol] 11.6 mmol/L Normal [facility] Comment on above: Performed By: #### B MP, LIVER, LIPID, TSH #### [facility] [address] [place] [address] Dr. Millie Cai Calcium [Mass/Vol] 8.7 mg/dL Normal 8.5-10.1 [facility] Comment on above: Performed By: #### B MP, LIVER, LIPID, TSH #### [facility] [address] [place] [address] Dr. Millie Cai Chloride [Moles/Vol] 105 mmol/L Normal 98-107 [facility] Comment on above: Performed By: #### B MP, LIVER, LIPID, TSH #### [facility] [address] [place] [address] Dr. Millie Cai CO2 [Moles/Vol] 27.6 mmol/L Normal 21.0-32.0 [facility] Comment on above: Performed By: #### B MP, LIVER, LIPID, TSH #### [facility] [address] [place] [address] Dr. Millie Cai Creatinine [Mass/Vol] 0.62 mg/dL Normal 0.55-1.02 [facility] Comment on above: Performed By: #### B MP, LIVER, LIPID, TSH #### [facility] [address] [address] [address] Millie Cai EGFR-AF NAURUAN >60 Normal >=60 [facility] Comment on above: Performed By: #### B MP, LIVER, LIPID, TSH #### [facility] [address] [address] [address] Millie Cai EGFR-NON AF NAURUAN >60 Normal >=60 [facility] Comment on above: Performed By: #### B MP, LIVER, LIPID, TSH #### [facility] [address] [address] [address] Millie Cai Glucose [Mass/Vol] 122 mg/dL Critically high 74-106 [facility] Comment on above: Performed By: #### B MP, LIVER, LIPID, TSH #### [facility] [address] [address] [address] Millie Cai Potassium [Moles/Vol] 4.2 mmol/L Normal 3.5-5.1 [facility] Comment on above: Performed By: #### B MP, LIVER, LIPID, TSH #### [facility] [address] [address] [address] Millie Cai Sodium [Moles/Vol] 140 mmol/L Normal 136-145 [facility] Comment on above: Performed By: #### B MP, LIVER, LIPID, TSH #### [facility] [address] [address] [address] Millie Cai Urea nitrogen [Mass/Vol] 17.0 mg/dL Normal 7.0-18.0 [facility] Comment on above: Performed By: #### B MP, LIVER, LIPID, TSH #### [facility] [address] [address] [address] Millie aCi Urea nitrogen/Creatinine [Mass ratio] 27.4 mg/mg Normal [facility] Comment on above: Performed By: #### B MP, LIVER, LIPID, TSH #### [facility] [address] [address] [address] Millie Cai TSHon 04-15-2022 TSH 1.589 uIU/mL Normal 0.358-3.740 [facility] Comment on above: Performed By: #### B MP, LIVER, LIPID, TSH #### [facility] [address] [place] [address] Dr. Millie Cai TSH RANGE SEE BELOW Normal [facility] Comment on above: Result Comment: <0.3 4 UIU/ml HYPERTHYROID 0.34-5.60 UIU/ml EUTHYROID >5.60 UIU/ml HYPOTHYROID Performed By: #### B MP, LIVER, LIPID, TSH #### [facility] [address] [place] [address] Dr. Millie Cai VITAMIN D 25 OHon 04-15-2022 VIT D 25-OH 27.2 ng/mL Normal [facility] Comment on above: Performed By: #### V ITAD #### [facility] [address] [place] [address] Dr. Millie Cai VIT D RANGES SEE BELOW Normal [facility] Comment on above: Result Comment: <20 ng/mL Vit D deficient 20 - <30 ng/mL Vit D insufficient 30 - 100 ng/mL Vit D sufficient >100 ng/mL Potential Toxicity Performed By: #### V ITAD #### [facility] [address] [place] [address] Dr. Millie Cai Vital Signs Date Time Vital Sign Value Performing Clinician Beata suarez 04-25-2025 09:35-0400 Body height 165.1 cm Efren Holguin MD Work Phone: [facility] 04-25-2025 09:35-0400 Body mass index (BMI) [Ratio] 38.61 kg/m2 Efren Holguin MD Work Phone: [facility] 04-25-2025 09:35-0400 Body temperature 97.11 [degF] Efren Holguin MD Work Phone: [facility] 04-25-2025 09:35-0400 Body weight 105.23 kg Efren Holguin MD Work Phone: [facility] 04-25-2025 09:35-0400 Diastolic blood pressure 74 mm[Hg] Efren Holguin MD Work Phone: [facility] 04-25-2025 09:35-0400 Heart rate 65 /min Efren Holguin MD Work Phone: [facility] 04-25-2025 09:35-0400 Respiratory rate 22 /min Efren Holguin MD Work Phone: [facility] 04-25-2025 09:35-0400 SaO2% (BldA) [Mass fraction] 99 % Efren Holguin MD Work Phone: [facility] 04-25-2025 09:35-0400 Systolic blood pressure 136 mm[Hg] Efren Holguin MD Work Phone: [facility] 10-18-2024 09:31-0500 Body height 165.1 cm Efren Holguin MD Work Phone: [facility] 10-18-2024 09:31-0500 Body mass index (BMI) [Ratio] 39.11 kg/m2 Efren Holguin MD Work Phone: [facility] 10-18-2024 09:31-0500 Body temperature 97.11 [degF] Efren Holguin MD Work Phone: [facility] 10-18-2024 09:31-0500 Body weight 106.59 kg Efren Holguin MD Work Phone: [facility] 10-18-2024 09:31-0500 Diastolic blood pressure 74 mm[Hg] Efren Holguin MD Work Phone: [facility] 10-18-2024 09:31-0500 Heart rate 61 /min Efren Holguin MD Work Phone: [facility] 10-18-2024 09:31-0500 Respiratory rate 22 /min Efren Holguin MD Work Phone: [facility] 10-18-2024 09:31-0500 SaO2% (BldA) [Mass fraction] 98 % Efren Holguin MD Work Phone: [facility] 10-18-2024 09:31-0500 Systolic blood pressure 140 mm[Hg] Efren Holguin MD Work Phone: [facility] Healthcare Encounters Encounter Date Encounter Type Care Provider Facility Start: 04-25-2025 End: 04-25-2025 Bamboo flowsheet Efren Holguin MD Work Phone: [facility] Start: 04-25-2025 End: 04-25-2025 Bamboo flowsheet Efren Holguin MD Work Phone: [facility] Start: 04-25-2025 End: 04-25-2025 Office outpatient visit 15 minutes Efren Holguin MD Work Phone: [facility] Comment on above: Type 2 diabetes ter[place] with hyperglycemia, without long-term current use of insulin (CMS/HCC) (Primary Dx); Essential hypertension, benign (CMS/HCC); Class 2 severe obesity due to excess calories with serious comorbidity and body mass index (BMI) of 38.0 to 38.9 in adult (CMS/HCC); Dyslipidemia (CMS/HCC); Type 2 diabetes mellitus with other specified complication Start: 04-25-2025 End: 04-25-2025 ambulatory EFREN HOLGUIN Not Available Start: 10-18-2024 End: 10-18-2024 Bamboo flowsheet Efren Holguin MD Work Phone: [facility] Start: 10-18-2024 End: 10-18-2024 Bamboo flowsheet Efren Holguin MD Work Phone: [facility] Start: 10-18-2024 End: 10-18-2024 Patient encounter procedure Efren Holguin MD Work Phone: [facility] Work Phone: Start: 10-18-2024 End: 10-18-2024 Periodic preventive med est patient 40-64yrs Efren Holguin MD Work Phone: [facility] Comment on above: Annual physical exam (Primary Dx); Breast cancer screening by mammogram; Type 2 diabetes mellitus with hyperglycemia, without long-term current use of insulin (CMS/HCC); Essential hypertension, benign (CMS/HCC) Start: 10-18-2024 End: 10-18-2024 ambulatory EFREN HOLGUIN Not Available Start: 07-19-2024 End: 07-19-2024 Clinisync Result Encounter Efren Holguin MD Work Phone: [facility] Unsolicited Start: 07-19-2024 End: 07-19-2024 Clinisync Result Encounter Efren Holguin MD Work Phone: [facility] Unsolicited Start: 07-19-2024 End: 07-19-2024 Orders Only Efren Holguin MD Work Phone: [facility] Comment on above: Dyslipidemia (CMS/HC C) (Primary Dx) Start: 06-20-2024 End: 06-20-2024 Postop follow up visit related to original px Carl Pratt MD Work Phone: [facility] Comment on above: Primary open angle g laucoma (POAG) of both eyes, moderate stage (Primary Dx) Start: 06-20-2024 End: 06-20-2024 [address] [facility] Start: 05-09-2024 End: 05-09-2024 Postop follow up visit related to original px Carl Pratt MD Work Phone: [facility] Comment on above: Primary open angle g laucoma (POAG) of both eyes, moderate stage (Primary Dx) Start: 05-09-2024 End: 05-09-2024 ambulatory [facility] Start: 04-25-2024 End: 04-25-2024 Postop follow up visit related to original px Carl Pratt MD Work Phone: [facility] Comment on above: Primary open angle g laucoma (POAG) of both eyes, moderate stage (Primary Dx) Start: 04-25-2024 End: 04-25-2024 ambulatory [facility] Start: 04-19-2024 End: 04-19-2024 Postop follow up visit related to original px Carl Pratt MD Work Phone: [facility] Comment on above: Primary open angle g laucoma (POAG) of both eyes, moderate stage (Primary Dx) Start: 04-19-2024 End: 04-19-2024 ambulatory [facility] Start: 04-13-2024 End: 04-13-2024 Postop follow up visit related to original px Carl Pratt MD Work Phone: [facility] Comment on above: Primary open angle g laucoma (POAG) of both eyes, moderate stage (Primary Dx) Start: 04-13-2024 End: 04-13-2024 ambulatory [facility] Start: 04-12-2024 End: 04-12-2024 Evaluation and management of inpatient [facility] Start: 04-12-2024 End: 04-12-2024 Evaluation and management of inpatient [facility] Start: 02-24-2024 End: 02-24-2024 Telephone encounter [facility] Start: 02-16-2024 End: 02-16-2024 ambulatory [facility] Start: 02-16-2024 End: 02-16-2024 Office outpatient visit 25 minutes Carl Pratt MD Work Phone: [facility] Comment on above: Primary open angle g laucoma (POAG) of both eyes, moderate stage (Primary Dx); Combined form of age-related cataract, both eyes Start: 12-27-2023 Documentation procedure Carl Pratt MD Work Phone: [facility] Start: 11-17-2023 Refill [facility] Start: 12-23-2022 End: 12-24-[address] EFREN HOLGUIN Facility:[facility] Start: 08-11-2022 End: 08-12-[address] EFREN HOLGUIN Facility:[facility] Start: 04-22-2022 Encounter for genera l adult medical examination without abnormal findings DR EFREN HOLGUIN [facility] Start: 04-15-2022 End: 04-16-[address] EFREN HOLGUIN Facility:[facility] Start: 04-15-2022 End: 04-16-2022 Encounter for general adult medical examination without abnormal findings DR EFREN HOLGUIN Facility:[facility] Procedures Date Procedure Procedure Detail Performing Clinician Start: 10-27-2024 Mammography Efren apple MD Work Phone: Start: 07-19-2024 ALL CBC WITH AUTO DIFF Efren Holguin MD Work Phone: Start: 08-19-2023 Mammography Efren apple MD Work Phone: Start: 08-15-2018 Colonoscopy Tosha Ray Plan of Treatment Date Care Activity Detail Author Start: 08-15-2028 Screening for malign ant neoplasm of colon [facility] Start: 01-15-2027 Glaucoma screening Diabetes: R etinopathy Screening [facility] Start: 10-27-2025 Screening for malign ant neoplasm of breast Mammogram [facility] Start: 10-24-2025 End: 10-24-2025 Patient encounter procedure 10/24/2025 8:45 AM EST Office Visit [facility] [address] [place] [id number] Efren Holguin MD [address] [place] [id number] [facility] Start: 04-25-2025 End: 04-25-2026 Hemoglobin A1c/Hemoglobin.total in Blood Hemoglobin A1c Lab Routine Type 2 diabetes mellitus with hyperglycemia, without long-term current use of insulin ([facility]) Expected: 04/25/2025 (Approximate), Expires: 04/25/2026 [facility] Comment on above: Expected: 04/25/2025 (Approximate), Expires: 04/25/2026 Start: 04-25-2025 End: 04-25-2026 Microalbumin/Creatinine panel in random Urine Microalbumin / creatinine, urine ratio Lab Routine Type 2 diabetes mellitus with hyperglycemia, without long-term current use of insulin ([facility]) Expected: 04/25/2025 (Approximate), Expires: 04/25/2026 [facility] Work Phone: Comment on above: Expected: 04/25/2025 (Approximate), Expires: 04/25/2026 Start: 04-25-2025 End: 04-25-2025 Patient encounter procedure [facility] Comment on above: Arrived Start: 04-19-2025 Tobacco Screening Tobacco Screening [facility] Start: 04-13-2025 Tobacco Screening Tobacco Screening [facility] Start: 04-12-2025 Adult BMI Screening Adult BMI Screen ing [facility] Start: 02-15-2025 Tobacco Screening Tobacco Screening [facility] Start: 01-16-2025 Hemoglobin A1c measurement Diabetes: Hemoglobin A1C [facility] Start: 01-13-2025 Glaucoma screening Diabetes: R etinopathy Screening [facility] Start: 11-24-2024 Urine screening for protein Diabetes: Urine Protein Screening [facility] Start: 10-18-2024 End: 12-19-2025 MG Breast - bilateral Screening Bilateral screening mammogram Imaging Routine Breast cancer screening by mammogram Expected: 10/18/2024, Expires: 12/19/2025 [facility] Work Phone: Comment on above: Expected: 10/18/2024 , Expires: 12/19/2025 Start: 10-18-2024 End: 10-18-2024 Patient encounter procedure [facility] Comment on above: Arrived Start: 09-10-2024 Tobacco Screening Tobacco Screening [facility] Start: 08-19-2024 Screening for malign ant neoplasm of breast Mammogram [facility] Start: 07-16-2024 Influenza vaccination [facility] Start: 06-06-2024 End: 06-06-2024 Patient encounter procedure 06/06/2024 9:00 AM EDT Office Visit [facility] [address] [place] [address] Carl Pratt MD [address] [place] [address] [facility] Start: 05-09-2024 End: 05-09-2024 Patient encounter procedure 05/09/2024 9:50 AM EDT Office Visit [facility] [address] [place] [address] Carl Pratt MD [address] [place] [address] [facility] Start: 05-04-2024 End: 05-04-2024 Patient encounter procedure 05/04/2024 1:50 PM EDT Office Visit [facility] [address] [place] [address] Carl Pratt MD [address] [place] [address] [facility] Start: 04-25-2024 End: 04-25-2024 Patient encounter procedure 04/25/2024 3:30 PM EDT Office Visit [facility] [address] [place] [address] Carl Pratt MD [address] [place] [address] [facility] Start: 04-19-2024 End: 04-19-2024 Patient encounter procedure 04/19/2024 1:20 PM EDT Office Visit [facility] [address] [place] [address] Carl Pratt MD [address] [place] [address] [facility] Start: 02-16-2024 End: 02-16-2024 Patient encounter procedure 02/16/2024 1:20 PM EDT Office Visit [facility] [address] [place] [address] Carl Pratt MD [address] [place] [address] [facility] Start: 11-19-2023 Hemoglobin A1c measurement Diabetes: Hemoglobin A1C [facility] Start: 07-16-2023 COVID-19 Vaccine ( season) COVID-19 Vaccine ( season) [facility] Start: 08-15-2019 Screening for malign ant neoplasm of colon Colonoscopy [facility] Start: 2010 Administration of varicella zoster vaccine Zoster (Shingles) Vaccine (1 of 2) [facility] Start: 1990 Screening for malign ant neoplasm of cervix [facility] Start: 1981 Screening for malign ant neoplasm of cervix Pap Smear [facility] Start: 1979 DTaP,Tdap and Td Vac cines (1 - Tdap) DTaP,Tdap and Td Vaccines (1 - Tdap) [facility] Start: 1978 Adult BMI Follow Up Plan Adult BMI Follow Up Plan [facility] Start: 1978 Adult BMI Screening Adult BMI Screen ing [facility] Start: 1972 Depression Screening Depression Scre ening [facility] Start: 1960 Screening for malign ant neoplasm of colon [facility] Immunizations Immunization Date Immunization Notes Care Provider Fa cility 09-15-2024 influenza virus vaccine, unspecified formulation Efren Holguin MD Work Phone: [facility] 07-30-2023 influenza virus vaccine, unspecified formulation Carl Pratt MD Work Phone: [facility] Payers Date Payer Category Payer Private Health Insurance [employer] A ETNA POS II [id number] 2018-Present [phone] [address] [place] [address] [id number] 2012 [facility] Care O (unspecified) [id number] 1960 Unknown [id number] 1960 Unknown [id number] [id number] [id number] 1960 Unknown [id number] [id number] .593 1960 Unknown [id number] .1286 1960 Unknown [id number] [id number] .1286 1960 Unknown [id number] [id number] .1286 1960 Unknown [id number] [id number] .1286 1960 Unknown [id number] [id number] .1286 1960 Unknown [id number] [id number] .1286 1960 Unknown [id number] [id number] .1286 1960 Unknown [id number] [id number] .1286 1960 Unknown [id number] [id number] .1286 1960 Unknown [id number] [id number] .1259 1960 Unknown [id number] 1959 Private Health Insurance [id number] Social History Date Type Detail Facility Start: 07-12-2023 End: 10-27-2023 Tobacco smoking status NHIS Never smoked tobacco [facility] Start: 07-12-2023 End: 10-27-2023 Tobacco use and exposure Smokeless tobacco non-user [facility] Start: 04-20-2024 End: 04-25-2025 Alcoholic beverage intake Lifetime non-drinker (finding) [facility] Start: 10-22-2023 End: 04-25-2025 History of Social function [facility] Start: 10-22-2023 End: 04-25-2025 Humiliation, Afraid, Rape, and Kick questionnaire [HARK] [facility] Within the last year , have you been afraid of your partner or ex-partner? No [facility] How often do you att end [employer] [facility] [employer]? Patient declined [facility] Are you now , , [...] to buy more. Never true [facility] Start: 1960 Sex assigned at Female [facility] Start: 08-15-2023 Gender identity Identifies as female gender (finding) [facility] Start: 10-28-2023 End: 02-16-2024 Alcohol intake Current non-drinker of alcohol (finding) [facility] Clinical Notes 11-17-2023 to 04-25-2025 Efren Holguin MD - 04/25/2025 10:03 AM German Holguin MD - 04/25/2025 10:03 AM German Holguin MD - 04/25/2025 10:03 AM German Holguin MD - 04/25/2025 9:30 AM EDTPatient Instructions Note Date & Type Note Facility 04-25-2025 History of Presen t illness Narrative Associated Problem(s): Class 2 severe obesity due to excess calories with serious comorbidity and body mass index (BMI) of 38.0 to 38.9 in adult ([facility]) Weight loss indicated. Associated Problem(s): Essential hypertension, benign ([facility]) BP controlled and monitor PRN. Associated Problem(s): Type 2 diabetes mellitus with hyperglycemia, without long-term current use of insulin ([facility]) Reports BS stable and due for A1C. Stick to ADA diet and limit carbs. Images from the original note were not included. Subjective Patient ID: Geni Schulte is a 64 y.o. female who presents for Follow-up (6m). Follow up DM and HTN. Patient feels well today. Reports BS stable around 140. Tries to eat well and stick to ADA diet but reports occasional splurges. Denies signs of elevated BS such as polyuria, polyphagia or polydipsia. Due for A1C. Checking BP PRN and typically controlled. BP normal today. Taking medication daily and tolerating without side effects. Weight down 7 pounds in past year. Active at work but no regular exercise or activity at home. Review of Systems Respiratory: Negative for cough, [...] There is no guarding or rebound. Musculoskeletal: Cervical back: Neck supple. Right lower leg: No edema. Left lower leg: No edema. Neurological: Mental Status: She is alert. Assessment/Plan Problem List Items Addressed This Visit Essential hypertension, benign (CMS/[facility]) BP controlled and monitor PRN. Dyslipidemia ([facility]) Relevant Medications atorvastatin (Lipitor) 40 MG tablet Class 2 severe obesity due to excess calories with serious comorbidity and body mass index (BMI) of 38.0 to 38.9 in adult ([facility]) Weight loss indicated. Type 2 diabetes mellitus with hyperglycemia, without long-term current use of insulin ([facility]) - Primary Reports BS stable and due for A1C. Stick to ADA diet and limit carbs. Relevant Orders Microalbumin / creatinine, urine ratio Hemoglobin A1c Other Visit Diagnoses Type 2 diabetes mellitus with other specified complication documented in this encounter [facility] 10-18-2024 History of Presen t illness Narrative Associated Problem(s): Type 2 diabetes mellitus with hyperglycemia, without long-term current use of insulin ([facility]) Not checking BS and last A1C 7.3. Stick to ADA diet and limit carbs. Associated Problem(s): Essential hypertension, benign (CMS/HCC) BP controlled and monitor PRN. Associated Problem(s): [...] Bilateral screening mammogram documented in this encounter [facility] 06-20-2024 History of Presen t illness Narrative Assessment/Plan: Intra-ocular pressure remains excellent with a diffuse bleb in the right eye following trabeculectomy. She can cut the Durezol down to once a day for the rest of the month then stop it. She will continue the glaucoma drops in the left eye only. She should f/u w/Dr. Caslilas in [place] in about 2 months for ongoing monitoring. Although the pressure is borderline in the left eye, the harris have been pretty stable over the last 3 years so we will continue to watch this for now. I will see her back as needed per Dr. Casillas. ICD-10-CM 1. Primary open angle glaucoma (POAG) of both eyes, moderate stage H40.1132 Geni Schulte had concerns including Post-op Follow-up. HPI Post-op Follow-up In right eye. Discomfort includes Negative for pain. Comments S/p Trabeculectomy done on 04/13/2024. The patient is taking Difluprednate BID OD, Dorz/timolol BID OS and Lumigan qhs OS. Last edited by ROBINSON Vanessa on 06/20/2024 9:31 AM. ROS Negative for: Constitutional, Gastrointestinal, Neurological, Skin, Genitourinary, Musculoskeletal, HENT, Endocrine, Cardiovascular, Eyes, Respiratory, Psychiatric, Allergic/Imm, Heme/Lymph Last edited by ROBINSON Vanessa on 06/20/2024 9:31 AM. No current outpatient medications on file. (Ophthalmic Drugs) No current facility-administered medications for this visit. (Ophthalmic Drugs) Current Outpatient Medications (Other) Medication Sig difluprednate (DUREZOL) 0.05 % drops Administer 1 drop to the right eye in the morning and 1 drop at noon and 1 drop in the evening and 1 drop before bedtime. Start five days BEFORE (04/07) your surgery scheduled for 04/12/2024. dorzolamide-timoloL (COSOPT) 22.3-6.8 mg/mL ophthalmic solution Administer 1 drop into the left eye every 12 (twelve) hours. LUMIGAN 0.01 % ophthalmic drops Administer 1 drop into the left eye nightly. metFORMIN XR (GLUCOPHAGE XR) 500 mg 24 hr tablet ofloxacin (OCUFLOX) 0.3 % ophthalmic solution Administer 1 drop to the right eye in the morning and 1 drop at noon and 1 drop in the evening and 1 drop before bedtime. olmesartan (BENICAR) 40 mg tablet No current facility-administered medications for this visit. (Other) Ms. Schulte has a past medical history of DM (diabetes mellitus), type 2 ([facility]), Glaucoma, and Hypertension. She has a past surgical history that includes Dilation and curettage of uterus; Colonoscopy (N/A, 08/15/2018); Selective Laser Traveculoplasty (Right, 02/10/2023); Selective Laser Traveculoplasty (Left, 02/23/2023); and Eye surgery (Right, 04/12/2024). Base Eye Exam Visual Acuity (Snellen - Linear) Right Left Dist cc 20/20 -1 20/20 Correction: Glasses Tonometry (Applanation, 9:40 AM) Right Left Pressure 13 21 Pachymetry (07/12/2023) Right Left Thickness 608 601 Neuro/Psych Oriented x3: Yes Mood/Affect: Normal Slit Lamp and Fundus Exam Slit Lamp Exam Right Left Conjunctiva/Sclera Bleb: diffuse Cornea Clear Anterior Chamber Deep and quiet Iris Peripheral iridectomy Lens 2+ Nuclear sclerosis, 1+ Cortical cataract Scribe Statement: Scribed for and in the presence of Carl Pratt II, MD by sunshine Emerson. Provider Statement: ICarl II, MD personally performed the services described in the documentation, as scribed by sunshine Emerson in my presence, and it is both accurate and complete. documented in this encounter [facility] 05-09-2024 History of Presen t illness Narrative Assessment/Plan: Doing well. Pressure is very good and there is a nice diffuse, quiet bleb. She will use the difluprednate 4 times a day this week then taper down to 3 times a day next week in 2 times a day ongoing the following week. I will see her back in 4 weeks. ICD-10-CM 1. Primary open angle glaucoma (POAG) of both eyes, moderate stage H40.1132 Geni Schulte had concerns including Post-op Follow-up. HPI Post-op Follow-up In right eye. Discomfort includes Negative for pain. Comments S/p Trabeculectomy done on 04/13/2024. The patient is taking Difluprednate QID OD, Dorz-timolol BID OS and Lumigan qhs OS. Last edited by ROBINSON Vanessa on 05/09/2024 9:41 AM. ROS Positive for: Eyes Negative for: Constitutional, Gastrointestinal, Neurological, Skin, Genitourinary, Musculoskeletal, HENT, Endocrine, Cardiovascular, Respiratory, Psychiatric, Allergic/Imm, Heme/Lymph Last edited by ROBINSON Vanessa on 05/09/2024 9:40 AM. No current outpatient medications on file. (Ophthalmic Drugs) No current facility-administered medications for this visit. (Ophthalmic Drugs) Current Outpatient Medications (Other) Medication Sig difluprednate (DUREZOL) 0.05 % drops Administer 1 drop to the right eye in the morning and 1 drop at noon and 1 drop in the evening and 1 drop before bedtime. Start five days BEFORE (04/07) your surgery scheduled for 04/12/2024. dorzolamide-timoloL (COSOPT) 22.3-6.8 mg/mL ophthalmic solution Administer 1 drop into the left eye every 12 (twelve) hours. LUMIGAN 0.01 % ophthalmic drops Administer 1 drop into the left eye nightly. metFORMIN XR (GLUCOPHAGE XR) 500 mg 24 hr tablet ofloxacin (OCUFLOX) 0.3 % ophthalmic solution Administer 1 drop to the right eye in the morning and 1 drop at noon and 1 drop in the evening and 1 drop before bedtime. olmesartan (BENICAR) 40 mg tablet No current facility-administered medications for this visit. (Other) Ms. Schulte has a past medical history of DM (diabetes mellitus), type 2 ([facility]), Glaucoma, and Hypertension. She has a past surgical history that includes Dilation and curettage of uterus; Colonoscopy (N/A, 08/15/2018); Selective Laser Traveculoplasty (Right, 02/10/2023); Selective Laser Traveculoplasty (Left, 02/23/2023); and Eye surgery (Right, 04/12/2024). Base Eye Exam Visual Acuity (Snellen - Linear) Right Left Dist cc 20/20 -1 20/20 Correction: Glasses Tonometry (Applanation, 10:19 AM) Right Left Pressure 13 21 Pachymetry (07/12/2023) Right Left Thickness 608 601 Neuro/Psych Oriented x3: Yes Mood/Affect: Normal Slit Lamp and Fundus Exam Slit Lamp Exam Right Left Conjunctiva/Sclera Bleb: Nova negative, diffuse Cornea Clear Anterior Chamber Deep and quiet Iris Peripheral iridectomy Lens 2+ Nuclear sclerosis, 1+ Cortical cataract Scribe Statement: Scribed for and in the presence of Carl Pratt II, MD by sunshine Emerson. Provider Statement: ICarl II, MD personally performed the services described in the documentation, as scribed by sunshine Emerson in my presence, and it is both accurate and complete. documented in this encounter [facility] 04-25-2024 History of Presen t illness Narrative Assessment/Plan: The bleb is more elevated and diffuse following suture lysis. The conjunctival defect is healed. She will stop the erythromycin ointment and continue the difluprednate 4 times a day. She can resume normal activity and follow-up in 2 weeks. ICD-10-CM 1. Primary open angle glaucoma (POAG) of both eyes, moderate stage H40.1132 Geni Schulte had concerns including Post-op Follow-up. HPI Post-op Follow-up In right eye. Discomfort includes Negative for pain. Comments Post op OD s/p Trabeculectomy done on 04/12/2024. The patient is taking Difluprednate QID OD, Dorz-timolol BID OS and Lumigan qhs OS Last edited by ROBINSON Vanessa on 04/25/2024 3:41 PM. ROS Negative for: Constitutional, Gastrointestinal, Neurological, Skin, Genitourinary, Musculoskeletal, HENT, Endocrine, Cardiovascular, Eyes, Respiratory, Psychiatric, Allergic/Imm, Heme/Lymph Last edited by ROBINSON Vanessa on 04/25/2024 3:40 PM. No current outpatient medications on file. (Ophthalmic Drugs) No current facility-administered medications for this visit. (Ophthalmic Drugs) Current Outpatient Medications (Other) Medication Sig difluprednate (DUREZOL) 0.05 % drops Administer 1 drop to the right eye in the morning and 1 drop at noon and 1 drop in the evening and 1 drop before bedtime. Start five days BEFORE (04/07) your surgery scheduled for 04/12/2024. dorzolamide-timoloL (COSOPT) 22.3-6.8 mg/mL ophthalmic solution Administer 1 drop into the left eye every 12 (twelve) hours. erythromycin (ILOTYCIN) ophthalmic ointment Administer 1.25 cm (0.5 inches total) to the right eye nightly for 10 days. LUMIGAN 0.01 % ophthalmic drops Administer 1 drop into the left eye nightly. metFORMIN XR (GLUCOPHAGE XR) 500 mg 24 hr tablet ofloxacin (OCUFLOX) 0.3 % ophthalmic solution Administer 1 drop to the right eye in the morning and 1 drop at noon and 1 drop in the evening and 1 drop before bedtime. olmesartan (BENICAR) 40 mg tablet No current facility-administered medications for this visit. (Other) Ms. Schulte has a past medical history of DM (diabetes mellitus), type 2 ([facility]), Glaucoma, and Hypertension. She has a past surgical history that includes Dilation and curettage of uterus; Colonoscopy (N/A, 08/15/2018); Selective Laser Traveculoplasty (Right, 02/10/2023); Selective Laser Traveculoplasty (Left, 02/23/2023); and Eye surgery (Right, 04/12/2024). Base Eye Exam Visual Acuity (Snellen - Linear) Right Left Dist cc 20/20 -1 20/20 Correction: Glasses Tonometry (Applanation, 4:41 PM) Right Left Pressure 15 20 Tonometry #2 (Applanation, 4:42 PM) Right Left Pressure 10 Tonometry Comments T2: Post compression Pachymetry (07/12/2023) Right Left Thickness 608 601 Neuro/Psych Oriented x3: Yes Mood/Affect: Normal Slit Lamp and Fundus Exam Slit Lamp Exam Right Left Conjunctiva/Sclera Bleb: Nova negative, diffuse Cornea Clear Anterior Chamber Deep and quiet Lens 2+ Nuclear sclerosis, 1+ Cortical cataract Scribe Statement: Scribed for and in the presence of Carl Pratt II, MD by sunshine Emerson. Provider Statement: I, Carl Pratt II, MD personally performed the services described in the documentation, as scribed by sunshine Emerson in my presence, and it is both accurate and complete. documented in this encounter [facility] 04-19-2024 History of Presen t illness Narrative Assessment/Plan: The intra-ocular pressure is still in the 20s but response a massage. We will cut the nasal sutures at seems to be where most of the flow is. There is some staining in the superior temporal bleb and we will add erythromycin ointment at bedtime as well. She will continue the difluprednate 4 times a day and stop the antibiotic drop and follow-up next week. ICD-10-CM 1. Primary open angle glaucoma (POAG) of both eyes, moderate stage H40.1132 Geni Kahnas had concerns including Post-op Follow-up. HPI Post-op Follow-up In right eye. Comments Post op exam for Trabeculectomy of the right eye on 04-12-2024 No pain or discomfort. She uses Ofloxacin QID OD - last used ~1:15pm today Difluprednate QID OD - last used ~1:15pm today Dorz-timolol BID OS - last used ~7:30am today Lumigan qhs OS - last used ~9:30pm yesterday Last edited by Sadaf Canada on 04/19/2024 1:44 PM. ROS Positive for: Eyes Negative for: Constitutional, Gastrointestinal, Neurological, Skin, Genitourinary, Musculoskeletal, HENT, Endocrine, Cardiovascular, Respiratory, Psychiatric, Allergic/Imm, Heme/Lymph Last edited by Anu Ac on 04/19/2024 1:32 PM. No current outpatient medications on file. (Ophthalmic Drugs) No current facility-administered medications for this visit. (Ophthalmic Drugs) Current Outpatient Medications (Other) Medication Sig difluprednate (DUREZOL) 0.05 % drops Administer 1 drop to the right eye in the morning and 1 drop at noon and 1 drop in the evening and 1 drop before bedtime. Start five days BEFORE (04/07) your surgery scheduled for 04/12/2024. dorzolamide-timoloL (COSOPT) 22.3-6.8 mg/mL ophthalmic solution Administer 1 drop into the left eye every 12 (twelve) hours. LUMIGAN 0.01 % ophthalmic drops Administer 1 drop into the left eye nightly. metFORMIN XR (GLUCOPHAGE XR) 500 mg 24 hr tablet ofloxacin (OCUFLOX) 0.3 % ophthalmic solution Administer 1 drop to the right eye in the morning and 1 drop at noon and 1 drop in the evening and 1 drop before bedtime. olmesartan (BENICAR) 40 mg tablet No current facility-administered medications for this visit. (Other) Ms. Schulte has a past medical history of DM (diabetes mellitus), type 2 ([facility]), Glaucoma, and Hypertension. She has a past surgical history that includes Dilation and curettage of uterus; Colonoscopy (N/A, 08/15/2018); Selective Laser Traveculoplasty (Right, 02/10/2023); Selective Laser Traveculoplasty (Left, 02/23/2023); and Eye surgery (Right, 04/12/2024). Base Eye Exam Visual Acuity (Snellen - Linear) Right Left Dist cc 20/20 -2 20/20 Correction: Glasses Tonometry .[id number] Pachymetry (07/12/2023) Right Left Thickness 608 601 Neuro/Psych Oriented x3: Yes Mood/Affect: Normal Slit Lamp and Fundus Exam Slit Lamp Exam Right Left Conjunctiva/Sclera Bleb: Nova negative, Superior-nasal bleb staining Cornea Clear Anterior Chamber Deep and quiet Lens 2+ Nuclear sclerosis, 1+ Cortical cataract Scribe Statement: Scribed for and in the presence of Carl Pratt II, MD by ROBINSON Zaman. Provider Statement: I, Carl Pratt II, MD personally performed the services described in the documentation, as scribed by ROBINSON Zaman in my presence, and it is both accurate and complete. documented in this encounter [facility] 04-19-2024 Instructions Sadaf Canada - 04/19/2024 1:20 PM EDT Images from the original [...] can I learn more? Glaucoma Research Foundation http://www.glaucoma.org/treatme nt/eyedrop-tips.php National [employer] https://www.nei.nih.gov/learn-a gthy-qnz-qzqbex/eye-conditions- and-diseases/glaucoma/glaucoma- medicines/llo-ofb-eps-drops Last Reviewed Date 2020-10-16 Consumer Information Use [...] or approved for treating a specific patient. [employer] and its affiliates disclaim any warranty or liability relating to this information or the use thereof. The use of this information is governed by the Terms of Use, available at https://www.[place].[employer]/e n/know/cajhprwv-tujdplalhjeii-p erms Copyright Copyright 2022 [employer] and its affiliates and/or licensors. All rights reserved. documented in this encounter [email or web address] 04-13-2024 History of Presen t illness Narrative Assessment/Plan: The pressure is slightly high but there is a nice diffuse bleb and it responds to gentle massage. We reviewed the drops and activity restrictions. She will follow-up next week. ICD-10-CM 1. Primary open angle glaucoma (POAG) of both eyes, moderate stage H40.1132 Geni Schulte had concerns including Post-op Follow-up. HPI Post-op Follow-up In right eye. Follow-up Type: 1 day Trabeculectomy. Comments The patient reports stable vision and denies pain and discomfort. The patient is using Difluprednate QID OD last instilled @ 12 pm Ofloxacin QID OD last instilled @ 12 pm Dorzolamide-Timolol BID OS last instilled @ 7 am Lumigan QHS OS last instilled last night Last edited by Sadaf Canada on 04/13/2024 2:44 PM. ROS Positive for: Eyes Negative for: Constitutional, Gastrointestinal, Neurological, Skin, Genitourinary, Musculoskeletal, HENT, Endocrine, Cardiovascular, Respiratory, Psychiatric, Allergic/Imm, Heme/Lymph Last edited by Betsy Medrano on 04/13/2024 1:56 PM. No current outpatient medications on file. (Ophthalmic Drugs) No current facility-administered medications for this visit. (Ophthalmic Drugs) Current Outpatient Medications (Other) Medication Sig difluprednate (DUREZOL) 0.05 % drops Administer 1 drop to the right eye in the morning and 1 drop at noon and 1 drop in the evening and 1 drop before bedtime. Start five days BEFORE (04/07) your surgery scheduled for 04/12/2024. dorzolamide-timoloL (COSOPT) 22.3-6.8 mg/mL ophthalmic solution Administer 1 drop into the left eye every 12 (twelve) hours. LUMIGAN 0.01 % ophthalmic drops Administer 1 drop into the left eye nightly. metFORMIN XR (GLUCOPHAGE XR) 500 mg 24 hr tablet ofloxacin (OCUFLOX) 0.3 % ophthalmic solution Administer 1 drop to the right eye in the morning and 1 drop at noon and 1 drop in the evening and 1 drop before bedtime. olmesartan (BENICAR) 40 mg tablet No current facility-administered medications for this visit. (Other) Ms. Schulte has a past medical history of DM (diabetes mellitus), type 2 ([facility]), Glaucoma, and Hypertension. She has a past surgical history that includes Dilation and curettage of uterus; Colonoscopy (N/A, 08/15/2018); Selective Laser Traveculoplasty (Right, 02/10/2023); Selective Laser Traveculoplasty (Left, 02/23/2023); and Eye surgery (Right, 04/12/2024). Base Eye Exam Visual Acuity (Snellen - Linear) Right Left Dist cc 20/25 20/20 Correction: Glasses Tonometry (Applanation, 2:45 PM) Right Left Pressure 27 24 Tonometry #2 (Applanation, 2:46 PM) Right Left Pressure 12 Tonometry Comments T1 and T2 by JCB, T2 p/massage Pachymetry (07/12/2023) Right Left Thickness 608 601 Neuro/Psych Oriented x3: Yes Mood/Affect: Normal Slit Lamp and Fundus Exam Slit Lamp Exam Right Left Conjunctiva/Sclera Bleb: Nova negative, Inferior Subconjunctival hemorrhage Anterior Chamber Trace Cell Lens 2+ Nuclear sclerosis, 1+ Cortical cataract Scribe Statement: Scribed for and in the presence of Carl Pratt II, MD by ROBINSON Zaman. Provider Statement: I, Carl Pratt II, MD personally performed the services described in the documentation, as scribed by ROBINSON Zaman in my presence, and it is both accurate and complete. documented in this encounter [facility] 04-13-2024 Instructions Sadaf Canada - 04/13/2024 1:50 PM EDT Images from the original note [...] can I learn more? Glaucoma Research Foundation http://www.glaucoma.org/treatme nt/eyedrop-tips.php National Eye [employer] https://www.nei.nih.gov/learn-a yqnz-fgu-oebxjb/eye-conditions- and-diseases/glaucoma/glaucoma- medicines/osz-nub-vbo-drops Last Reviewed Date 2020-10-16 Consumer Information Use [...] or approved for treating a specific patient. [employer] and its affiliates disclaim any warranty or liability relating to this information or the use thereof. The use of this information is governed by the Terms of Use, available at https://www.[place].com/e n/know/naoghzcu-bggsypmpjghsu-n erms Copyright Copyright 2022 [employer]. and its affiliates and/or licensors. All rights reserved. documented in this encounter [email or web address] 02-24-2024 Miscellaneous Notes Formattin g of this note might be different from the original. I left message for patient to return my call to schedule Trabeculectomy surgery with Dr. Pratt. documented in this encounter [email or web address] 02-24-2024 Telephone encount er Note I left message for patient to return my call to schedule Trabeculectomy surgery with Dr. Pratt. [facility] 02-16-2024 History of Presen t illness Narrative Assessment/Plan: There has been progressive [...] DROP INTO EACH EYE TWICE DAILY DIRECTED LUMIGAN 0.01 % ophthalmic drops Administer 1 [...] history of DM (diabetes mellitus), type 2 ([facility]), Glaucoma, and Hypertension. She has a past [...] Normal Normal Refraction Wearing Rx Sphere Cylinder [place] Add Right -4.00 +0.25 102 +2.75 Left -3.75 +0.50 005 +2.75 Age: 3yrs Type: PAL Scribe Statement: Scribed for and in the presence of Carl Pratt II, MD by ROBINSON Zaman. Provider Statement: I, Carl Pratt II, MD personally performed the services described in the documentation, as scribed by ROBINSON Zaman in my presence, and it is both accurate and complete. documented in this encounter [facility] 02-16-2024 Instructions Sadaf Canada - 02/16/2024 1:20 [...] can I learn more? Glaucoma Research Foundation http://www.glaucoma.org/treatme nt/eyedrop-tips.php National [employer] https://www.nei.nih.gov/learn-a tbhf-wpr-evhnff/eye-conditions- and-diseases/glaucoma/glaucoma- medicines/xgf-jgz-qwi-drops Last Reviewed Date 2020-10-16 Consumer Information Use [...] or approved for treating a specific patient. [employer] and its affiliates disclaim any warranty or liability relating to this information or the use thereof. The use of this information is governed by the Terms of Use, available at https://www.[place].[employer] Academy/e n/know/yerbriyh-vrominmxxuhuh-f erms Copyright Copyright 2022 [employer] and its affiliates and/or licensors. All rights reserved. documented in this encounter [email or web address] 12-27-2023 History of Presen t illness Narrative [...] I may review the message from Dr. Pratt. I also spoke with Marivel at Dr. [...] be seen sooner? documented in this encounter [facility] 11-17-2023 History of Presen t illness Narrative Hi, I received Dr. Casillas's note from [place] documenting that the new drop that we sample did not have any effect on the pressure. She can resume the Lumigan in place of the Vyzulta. I would like to try brimonidine twice a day in the right eye. Use it morning and at suppertime. We can send in a prescription for this. Ask her to see Dr. Casillas in [place] to recheck the pressure in about a month. Thanks. SANTIAGO Patient returned my call and I gave her the new message from JCB- brimonidine twice a day in the right eye documented in this encounter [facility] Evaluation note Diagnosis Type 2 diabetes mellitus [...] hypertension, benign [facility] Diagnosis Dyslipidemia (CMS/HCC)- Primary Other and unspecified hyperlipidemia documented in this encounter [facility]* Diagnosis Primary open angle glaucoma (POAG) of both eyes, moderate stage- Primary documented [facility] this encounter [facility]* Diagnosis Primary open angle glaucoma (POAG) of both eyes, moderate stage- Primary documented in this encounter [facility]* Diagnosis Primary open angle glaucoma (POAG) of both eyes, moderate stage- Primary documented in this encounter [facility]* Diagnosis Primary open angle glaucoma (POAG) of both eyes, moderate stage- Primary documented in this encounter [facility]* Diagnosis Primary open angle glaucoma (POAG) of both eyes, moderate stage- Primary documented in this encounter [facility]* Diagnosis Primary open angle glaucoma (POAG) of both eyes, moderate stage- Primary Combined form of age-related cataract, both eyes documented in this encounter [facility]* Diagnosis Type 2 diabetes mellitus with hyperglycemia, without long-term current use of insulin ([facility])- Primary Essential hypertension, benign (CMS/HCC) Essential hypertension, [...] Essential hypertension, benign (CMS/HCC) Essential hypertension, benign Class 2 severe obesity due to excess calories with serious comorbidity and body mass index (BMI) of 38.0 to 38.9 in adult (CMS/HCC) Dyslipidemia (CMS/HCC) Other and unspecified hyperlipidemia Type 2 diabetes mellitus with other specified complication documented in this encounter [facility]ructions[facility] on filedocumented in [facility]ructionsNot on filedocumented in this encounterProMedica [facility] SystemInstructionsNot on filedocumented in this encounterProMedica [facility] SystemInstructionsNot on filedocumented in this [facility]Pro[facility] InstructionsNot on filedocumented in this encounterPro[facility] Summary Purpose Family History No Family History Records FoundNo Family History Records FoundNo Family History Records FoundNo Family History Records Found Advance Directives No Advanced Directives Records FoundNo Advanced Directives Records FoundNo Advanced Directives Records FoundNo Advanced Directives Records Found Additional Source Comments INFORMATION SOURCE (unrecogn ized section and content) DATE CREATED AUTHOR 12/25/2022 [facility] DATE CREATED AUTHOR AUTHOR'S ORGANIZ ATION 04/13/2024 [facility] DATE CREATED AUTHOR AUTHOR'S ORGANIZ ATION 06/22/2024 [facility] DATE CREATED AUTHOR AUTHOR'S ORGANIZ ATION 04/27/2025 [facility] EPIC Care Teams (unrecognized sec tion and content) Psychometric Examiner Relationship Specialty Start Date End Date Efren Holguin MD [address] [place] [phone] PCP - General Family Medicine 10/26/23 Psychometric Examiner Relationship Specialty Start Date End Date Efren Holguin MD [address] [place] [phone] PCP - General Family Medicine 10/26/23 Psychometric Examiner Relationship Specialty Start Date End Date Efren Holguin MD [address] [place] [phone] PCP - General Family Medicine 10/26/23 Psychometric Examiner Relationship Specialty Start Date End Date Efren Holguin MD [address] [place] [phone] PCP - General Family Medicine 10/26/23 Psychometric Examiner Relationship Specialty Start Date End Date Efren Holguin MD [address] [facility] [place] [address] PCP - General Family Medicine 07/20/18 Psychometric Examiner Relationship Specialty Start Date End Date Efren Holguin MD [address] [facility] [place] [place] [address] PCP - General Family Medicine 07/20/18 Psychometric Examiner Relationship Specialty Start Date End Date Efren Holguin MD [address] [facility] [place] [address] PCP - General Family Medicine 07/20/18 Psychometric Examiner Relationship Specialty Start Date End Date Efren Holguin MD [address] [facility] [place] [address] PCP - General Family Medicine 07/20/18 Psychometric Examiner Relationship Specialty Start Date End Date Efren Holguin MD [address] [facility] [place] [address] PCP - General Family Medicine 07/20/18 Psychometric Examiner Relationship Specialty Start Date End Date Efren Holguin MD [address] [facility] [place] [address] PCP - General Family Medicine 07/20/18 Psychometric Examiner Relationship Specialty Start Date End Date Efren Holguin MD [address] [facility] [place] [address] PCP - General Family Medicine 07/20/18 Psychometric Examiner Relationship Specialty Start Date End Date Efren Holguin MD [address] [facility] [place] [address] PCP - General Family Medicine 07/20/18 Psychometric Examiner Relationship Specialty Start Date End Date Efren Holguin MD [address] [place] [phone] PCP - General Family Medicine 10/26/23 Psychometric Examiner Relationship Specialty Start Date End Date Efren Holguin MD [address] [place] [id number] PCP - General Family Medicine 10/26/23 Reason for Visit (unrecogniz ed section and content) Reason Comments Follow-up 6m Reason Comments Post-op Follow-up Reason Comments Glaucoma FOR RECORDS PERTAINING TO PATIENTS WHO ARE [...] BE BASED ON THE PRIMARY CLINICAL RECORDS. [facility] provides no warranty or guarantee of the accuracy or completeness of information in this document.
[2025-07-18 13:27] LABS: Microalbum Creatinine Ratio Ur 19.7 mg/g (0.0-29.9)
== END 2025-07-18 08:48 | disposition home or self-care (01) ==
LOC: LAB 08:48
PROVIDERS: PCP Family Medicine; Visit Provider Family Medicine
DX: E11.65 Type 2 diabetes mellitus with hyperglycemia (principal)
CPT/HCPCS: 36415; 82043; 82570; 83036